=== PATIENT | female | born 1965 | race Caucasian/White ===

== ENCOUNTER → 2016-10-28 | Outpatient (CLI) | payer BC ==
[~2016-10-28] MED LIST: ACET-1175 PO; FAMO1TAB71 PO; IBUPROFEN
--- NOTE | 2016-10-29 16:37 | MAMMOGRAPHY REPORT ---
BILATERAL DIGITAL SCREENING MAMMOGRAM TOMOSYNTHESIS WITH CAD: 10/28/2016 CLINICAL HISTORY: Routine screening. Patient has no complaints. TECHNIQUE: Breast tomosynthesis in addition to standard 2D mammography was performed. Current study was also evaluated with a Computer Aided Detection (CAD) system. COMPARISON: Comparison is made to exams dated: 10/25/2015 mammogram, 11/14/2011 mammogram, 11/12/2010 mammogram, 11/10/2009 mammogram - [facility], 11/09/2008, and 05/27/2007. BREAST COMPOSITION: The tissue of both breasts is heterogeneously dense, which may obscure small ma sses. FINDINGS: A 15 mm lobulated and circumscribed mass in the 6:00 posterior right breast is stable mamm ographically dating back to at least 2006, therefore likely benign. No new suspicious mass, archite ctural distortion or cluster of microcalcifications is seen. IMPRESSION: ACR BI-RADS CATEGORY 1: NEGATIVE There is no mammographic evidence of malignancy. A 1 year screening mammogram is recommended. The p atient will receive written notification of the results. Approximately 10% of breast cancers are not detected with mammography. A negative mammographic repor t should not delay biopsy if a clinically suggestive mass is present. Davida Nolasco M.D. ay/:10/29/2016 15:35:13 Airplane Pilot Crop Dusting: Dipti Garsia, [facility] letter sent: Normal 1/2 BI-RADS Code: ACR BI-RADS Category 1: Negative
== END | disposition home or self-care (01) ==
LOC: C.MAMM 08:41
PROVIDERS: ATTEND Obstetrics & Gynecology
DX: Z12.31 Encounter for screening mammogram for malignant neoplasm of breast (principal)

== ENCOUNTER → 2017-11-11 | Outpatient (CLI) | payer OTHER ==
[~2017-11-11] MED LIST changes: +FAMO-103 PO; -FAMO1TAB71 PO
--- NOTE | 2017-11-12 15:22 | MAMMOGRAPHY REPORT ---
BILATERAL DIGITAL SCREENING MAMMOGRAM TOMOSYNTHESIS WITH CAD: 11/11/2017 CLINICAL HISTORY: Routine screening. Patient has no complaints. TECHNIQUE: Breast tomosynthesis in addition to standard 2D mammography was performed. Current study was also evaluated with a Computer Aided Detection (CAD) system. COMPARISON: Comparison is made to exams dated: 10/28/2016 mammogram, 10/25/2015 mammogram, 11/14/2011 m ammogram, 11/12/2010 mammogram, 11/10/2009 mammogram - [facility], and 11/09/2008. BREAST COMPOSITION: The tissue of both breasts is heterogeneously dense, which may obscure small mas ses. FINDINGS: A circumscribed mass in the 6:00 posterior right breast is fluctuating in size comparing to prior mammograms, most likely representing a fluctuating cysts. This has been present dating back t o at least 2008 on the currently available priors. No new suspicious mass, architectural distortion or cluster of microcalcifications is seen. IMPRESSION: ACR BI-RADS CATEGORY 1: NEGATIVE There is no mammographic evidence of malignancy. A 1 year screening mammogram is recommended. The pa tient will receive written notification of the results. Approximately 10% of breast cancers are not detected with mammography. A negative mammographic report should not delay biopsy if a clinically suggestive mass is present. Davida Nolasco M.D. ay/:11/11/2017 17:25:57 Pest Control Service Representative: Paula EASON)(Nesha), [facility] letter sent: Normal 1/2 BI-RADS Code: ACR BI-RADS Category 1: Negative
== END | disposition home or self-care (01) ==
LOC: C.MAMM 07:39
PROVIDERS: ATTEND Obstetrics & Gynecology
DX: Z12.31 Encounter for screening mammogram for malignant neoplasm of breast (principal)

== ENCOUNTER → 2018-04-30 | Outpatient (CLI) | payer OTHER ==
[2018-04-30 11:48] LABS: CKMB < 1.0 ng/ml (0.5-3.6)
[2018-05-03 00:34] LABS: ANA SCREEN TC 249X NEGATIVE (NEGATIVE)
== END | disposition home or self-care (01) ==
LOC: C.LAB1850 10:32
PROVIDERS: ATTEND Physician Assistant
DX: M79.7 Fibromyalgia (principal)

== ENCOUNTER 2019-02-13 13:22 | Inpatient (IN) ==
--- OUTSIDE RECORDS SUMMARY | 2019-02-13 13:25 | External Medical Summary | Continuity of Care Document ---
:1965 Author Name Michelle Shelby, Provider Address Unavailable Unavailable , Care Team Providers Name Role Phone Vladimir DUMONT, Americo Unavailable [email or web address] NICOLÁS Shelby, CARYL Ramirez Unavailable Unavailable Unavailable Unavailable Unavailable Problems Preventive Medicine Estab Patient Checkup Adult 40-64 (V70.0 ) Vomiting (787.03) (R11.10) Urinary tract infection (599.0) (N39.0) Acute conjunctivitis (372.00) (H10.30) Encounter for routine gynecological exam ination with Papanicolaou smear of cervix (V72.31) (Z01.419) Contact dermatitis due to poison yana (692.6) (L23.7) Insomnia (780.52) (G47.00) Rash (782.1) (R21) Cough (786.2) (R05) Nausea (787.02) (R11.0) Encounter for routine pelvic examination (V72.31) (Z01.419) Tinea cruris (110.3) (B35.6) Chronic pain (338.29) (G89.29) Fibromyalgia (729.1) (M79.7) GERD without esophagitis (530.81) (K21.9) Hypertension (401.9) (I10) Arthralgia of multiple sites (719.49) (M25.50) Abnormal TSH (790.6) (R79.89) Allergies and Adverse Reactions Penicillins (Allergy) Reaction: Hives Terramycin SUSP (Allergy) Medications Pantoprazole Sodium 40 MG Oral Tablet De layed Release; TAKE ONE TABLET BY MOUTH DAILY JULIA Gilbert Start: 30-Sep-2012 Quantity: 30 Refills: 5 Ciprofloxacin HCl - 500 MG Oral Tablet; BID X 10DAY Veronica Gilbert Quantity: 20 Refills: 0 Pepcid 20 MG Oral Tablet Refills: 0 ALPRAZolam 0.25 MG Oral Tablet; TAKE 1 TABLET AT BEDTI PR NEEDED. JULIA Gilbert Start: 11-Oct-2013 Quantity: 30 Refills: 1 Calcium + D 500-1000-40 MG-UNT-MCG Oral Tablet Chewable; one daily Start: 11-Oct-2014 Refills: 0 Magnesium 500 MG Oral Tablet; Take 1 daily Start: 11-Oct-2014 Refills: 0 Escitalopram Oxalate 5 MG Oral Tablet; Take 1.5 table t daily JULIA Gilbert Start: 07-May-2018 Quantity: 45 Refills: 5 Glucosamine Chondr 1500 Complx Oral Capsule Start: 30-Apr-2018 Refills: 0 Probiotic Oral Capsule Start: 7 Refills: 0 Meloxicam 7.5 MG Oral Tablet; TAKE ONE TABLET BY MOUTH ONCE DAILY JULIA Gilbert Start: 14-May-2016 Quantity: 30 Refills: 5 Losartan Potassium 50 MG Oral Tablet; TAKE ONE TABLET BY MOUTH TWICE DAILY JULIA Gilbert Start: 12-Oct-2015 Quantity: 180 Refills: 3 Procedures Lipid Profile - Fasting Date: 02-Feb-2019 Free T4 Date: 04-Jan-2019 Ultra TSH Date: 04-Jan-2019 Free T4 Date: 02-Feb-2019 Ultra TSH Date: 02-Feb-2019 History of Dilation And Curettage Status : Completed History of Hysteroscopy With Status: Com pleted 01-Apr-2008 0:00 Endometrial Ablation History of Total Abdominal Status: Compl eted 27-Feb-2010 0:00 Hysterectomy With Removal Of Left Ovary History of Biopsy Breast Open Status: [facility] Preventive Medicine Estab Patient Checkup Adult 40-64 Immunizations Influenza On: 2011 Pneumococcal polysaccharide vaccine, 23 valent On: 29-Oct-19 13 13:59 Lot #: [id number], [employer] Tdap (Adacel) On: 29-Oct-2012 14:00 Lot #: [id number], [employer] Family History Unknown Family Member Family history of Hypertension (V17.49) Status: Active Comments: Family History Family history of Thyroid Disorder (V18.19) Status: Active Comments: Family History Family history of Urinary Tract Infection Status: Active Comments: Family History Family history of Diabetes Mellitus (V18.0) Status: Active Comments: Family History Social History - Smoking Status Never smoker Plan of Treatment Planned Encounters Appointment; Americo Gilbert PA-C Start: 13-May-2019 8:30 Req uest Planned Observations Planned Goals not documented Results No Known Results Results not documented Encounters Appointment; Americo Gilbert PA-C 12-Nov-2018 14:15 Encounter Diagnosis: Problem not documented Appointment; Americo Gilbert PA-C 30-Apr-2018 9:00 Encounter Diagnosis: Problem not documented Appointment; Americo Gilbert PA-C 22-Oct-2017 9:15 Encounter Diagnosis: Problem not documented Appointment; Americo Gilbert PA-C 09-Apr-2017 9:30 Encounter Diagnosis: Problem not documented Appointment; Americo Gilbert PA-C 13-May-2019 8:30 Encounter Diagnosis: Problem not documented
[2019-02-13] MEDS ORDERED: MoRPHine SULFATE 4 MG/ML 1 ML CARP\\VIAL IV STA (13:47)
[2019-02-13] MEDS ORDERED: ONDANSETRON INJ 2 MG/ML 2 ML VIAL IV STA (13:47)
[2019-02-13] MEDS ORDERED: SODIUM CHLORIDE 0.9% 1000ML 1,000 ML IV SCH (14:00)
[2019-02-13 14:09] LABS: Appearance Urine Turbid (Clear); Bacteria Urine Automated 4+ (Negative); Bilirubin Urine Negative (Negative); Color Urine Amber; Epithelial Cell Urine Auto >30 /lpf (0-5); Glucose Urine UA Negative (Negative); Ketones Urine 1+ (Negative); Leukocyte Esterase Urine 3+ (Negative); Nitrite Urine Positive (Negative); Protein Urine 2+ (Negative); Specific Gravity Urine 1.022 (1.000-1.030); Urobilinogen Urine Negative (Negative); WBC Urine Automated >30 /hpf (0-5)
[2019-02-13 14:21] LABS: Basophils # (auto) 0.05 K/uL (0-0.2); Basophils % (auto) 0.4 %; Eosinophils # (auto) 0.02 K/uL (0-0.5); Eosinophils % (auto) 0.1 %; Hematocrit (blood only) 32.3 % (37-47); Hemoglobin 11.6 g/dL (12.0-16.0); Immature Granulocytes # (auto) 0.04 K/uL (0.00-0.02); Immature Granulocytes % (auto) 0.3 %; Lymphocytes # (auto) 0.52 K/uL (1.2-3.4); Lymphocytes % (auto) 3.7 %; Mean Corpuscular Hgb Conc 35.9 g/dL (32-36); Mean Corpuscular Volume 85.4 fL (80-100); Mean Platelet Volume 9.3 fL (7.4-10.4); Monocytes # (auto) 1.36 K/uL (0.11-0.59); Monocytes % (auto) 9.6 %; Neutrophils # (auto) 12.23 K/uL (1.4-6.5); Neutrophils % (auto) 85.9 %; Platelet Count 204 K/uL (130-400); RDW Coefficient of Variation 12.9 % (11.5-14.5); RDW Standard Deviation 40.8 fL (36.4-46.3); Red Blood Count 3.78 M/uL (4.2-5.4); White Blood Count 14.22 K/uL (4.8-10.8)
[2019-02-13] MEDS ORDERED: cefTRIAXone SODIUM 1,000 MG/50 ML BAG IV STA (14:31)
[2019-02-13 14:39] LABS: Albumin Level 3.1 gm/dl (3.4-5.0); BUN Creatinine Ratio 13.4 (10-20); Calcium 8.8 mg/dl (8.5-10.1); Creatinine Clr Calc Pharmacy 49.8 ml/min; Est GFR (African American) 55.7; Potassium 3.6 mmol/L (3.5-5.1)
[2019-02-13 14:41] LABS: Albumin Globulin Ratio 0.8 (0.9-2); Bilirubin,Total 1.2 mg/dl (0.2-1); Globulin 3.7 gm/dl (2.5-4.0); Total Protein 6.8 gm/dl (6.4-8.2)
--- NOTE | 2019-02-13 14:56 | CT Scan Report ---
CT OF THE ABDOMEN AND PELVIS WITHOUT CONTRAST CLINICAL HISTORY: Left flank pain. COMPARISON STUDY: CT of the abdomen and pelvis December 16, 2009. Right upper quadrant ultrasound Augus t 2011. TECHNIQUE: Axial images of the abdomen and pelvis were obtained without IV contrast. Images were revi ewed in the axial, sagittal, and coronal planes. Automated exposure control was utilized for the derek dy. A dose lowering technique was utilized adhering to the principles of ALARA. FINDINGS: Lung bases are clear. No pneumatosis, free air or portal venous gas is present. Multiple wa ter attenuation hepatic lesions are suboptimally assessed on this unenhanced exam but favor cysts. Th e largest is a 5.4 cm lateral segment cyst. Unenhanced images of the spleen, adrenal glands and pancr eas are unremarkable. There is no biliary or pancreatic ductal dilatation. No evidence for a bowel obstruction. The appendix is not well visualized. There is no right lower emily drant inflammation. No renal, ureteral or bladder calculi are present. There is no hydronephrosis. Th ere is moderate left and mild right perinephric infiltration. There is also periureteral infiltration , greater than left. Bladder wall thickening with adjacent infiltration is noted although the bladder is underdistended. No suspicious osseous lesions are present. There is no lymphadenopathy. Small fat -containing umbilical hernia is present. IMPRESSION: 1. No urinary calculi or hydronephrosis. 2. Moderate left and mild right perinephric and periureteral infiltration with bladder wall thickenin g adjacent infiltration. The findings suggest an infectious process with cystitis and possible bilate ral pyelonephritis. No renal abscess. 3. Multiple suspected hepatic cysts. Electronically signed by: Don Jeffery M.D. 02/13/2019 2:55 PM
--- NOTE | 2019-02-13 16:17 | History & Physical Report ---
Date of Service February 13, 2019 Assessment & Plan (1) Acute pyelonephritis: Patient failed outpatient therapy with ciprofloxacin CT abdomen pelvis without contrast along with urinalysis confirmed pyelonephritis Patient with fever and rigors We will start patient on ceftriaxone Obtain urine culture Obtain blood cultures Admit to [facility] (2) Acute kidney injury: Most likely secondary to acute illness -no history of kidney injury or renal failure in the past Will start the patient on normal saline with 20 mEq of potassium chloride at 125 mL/h Follow I's and O's Repeat labs in the morning No hematuria (3) HTN (hypertension): Currently hemodynamically stable Continue home dose of losartan 50 mg twice daily Vital signs per protocol (4) Fibromyalgia: Continue Tylenol as needed Morphine sulfate for pain control for pyelonephritis Follow expectantly (5) GERD without esophagitis: No prior history of peptic ulcer disease No prior history of GI bleed Continue with pantoprazole every morning and famotidine every afternoon No history of ethanol use No history of tobacco use (6) Hyperlipidemia: No prior history Outpatient work-up (7) Hepatic cyst: Incidental finding on CT -no prior history per patient Minimal transaminitis -repeat labs in the morning Check coags No pain in right upper quadrant (8) Hyperglycemia: No prior history of diabetes mellitus Check a hemoglobin A1c (9) DVT prophylaxis: FELI reese SCDs Ambulate as tolerated No chemical prophylaxis at this time Please refer to Dr. Driscoll's addendum for further recommendations. History of Present Illness Attending: Dr. Hansen Is a 53-year-old female who began to have some nausea and fever 2 days ago. She was prescribed ciprofloxacin by her primary care provider and started oral antibiotics 36 hours ago. Overnight she developed a worsening nausea and left flank and CVA tenderness. She also developed fever with a T-max of 104 Fahrenheit accompanied by rigors. She presented emergency department was found to have a temp of 38.2 C. UA is positive. Urine culture is pending. CT scan of the abdomen pelvis without contrast revealed no urinary calculi or hydronephrosis. There was mention of moderate left and mild right perinephric and periureteral infiltration with bladder wall thickening adjacent to infiltration. The findings suggest infectious process with cystitis and possible bilateral pyelonephritis. There is no evidence of renal abscess. Incidentally there was also mention of multiple suspected hepatic cysts with the largest being 5.4 cm. There is no evidence of biliary or pancreatic ductal dilatation. Unenhanced images of the spleen, adrenal glands, and pancreas are unremarkable. Patient will be admitted for observation and IV antibiotics using ceftriaxone. The patient has a history of hypertension, fibromyalgia, GERD without esophagitis, insomnia, recurrent urinary tract infection, abnormal TSH. Home medications include losartan, pantoprazole, Pepcid, calcium plus D, E citalopram, meloxicam, glucosamine, and magnesium. Past surgical history includes breast biopsy, abdominal hysterectomy with unilateral salpingo-oophorectomy, EGD, esophageal dilatation. No tobacco or ethanol use history Primary Care Provider: Jhony Boyle MD Allergies Allergy/AdvReac Type Severity Reaction Status Date / Time latex Allergy Unknown Verified 02/13/19 14:59 Penicillins Allergy Unknown Verified 02/13/19 14:59 Tetracyclines Allergy Unknown ALLERGY TO Verified 02/13/19 14:59 OXYTETRACYCLINE (TERRAMYCIN) Home Medications Home Medications Medication Instructions Recorded Confirmed Type calcium carbonate [Calcium 500] 500 mg PO BID 02/13/19 02/13/19 History cholecalciferol (vitamin D3) 5,000 unit PO DAILY 02/13/19 02/13/19 History [Vitamin D3] escitalopram oxalate 5 mg PO DAILY 02/13/19 02/13/19 History famotidine [Pepcid] 20 mg PO QPM 02/13/19 02/13/19 History glucosamine sulfate [Glucosamine] 500 mg PO BID 02/13/19 02/13/19 History losartan 50 mg PO BID 02/13/19 02/13/19 History meloxicam 7.5 mg PO DAILY 02/13/19 02/13/19 History pantoprazole 40 mg PO DAILY 02/13/19 02/13/19 History Past Med/Surg History Medical History Hyperlipidemia Acute kidney injury Insomnia Abnormal TSH Fibromyalgia GERD without esophagitis Acute pyelonephritis (Acute) Hepatic cyst (Acute) HTN (hypertension) (Chronic) Surgical History H/O breast biopsy History of D&C S/P abdominal hysterectomy and left salpingo-oophorectomy Family History Other Diabetes Hypertension Thyroid gland disease Urinary tract infection Social History Preferred Language: Japanese Communication Ability: Effective Custom Clothier Required: No Beliefs That Will Affect Care: Zoroastrian Zoroastrian Beliefs: Dylan Shelton marital status: Current Living Situation: Spouse and Family current occupational status: employed Other Information That Helps Us Care for You: No Feels Safe at Home: Yes Safety Concerns: Feels Safe At This Time Smoking Status: Never smoker Do You Dip or Chew Tobacco: No Hx Alcohol Use: No Hx Substance Use: No Review of Systems Review of Systems: All systems reviewed & are unremarkable except as noted in HPI & below Physical Exam Physical Exam: GENERAL : No acute distress. Pleasant EYES: No icterus, gaze conjugate. PERRL NOSE: No evidence of epistaxis. MOUTH: No lesions or candidiasis. No evidence of dental caries. Tongue midline. Mucosa moist. NECK: Supple. Right carotid bruit. No JVD LUNGS: CTA B/L, no wheezes, rales or rhonchi. HEART: Regular, rate controlled. No appreciation murmurs gallops or rubs ABDOMEN: Soft, ND, BS Present in all 4 quadrants. Patient does have tenderness in the left upper quadrant. Also with CVA tenderness on the left EXTREMITIES: No LE edema, pedal pulses intact. NEURO: A&OX3. Bicep, brachioradialis, patellar tendon reflexes 2/4 bilaterally. No appreciation of neurological deficits Constitutional: WD/WN, vitals as above Eyes: normal visual lund by confrontation and + anicteric sclerae Neck: normal visual inspection and trachea midline Respiratory: normal respiratory effort, lungs clear to auscultation Cardiovascular: Rate/Rhythm: regular rate and regular rhythm Gastrointestinal (Abdomen): Inspection/Auscultation: + abdomen distended Percussion/Palpation: + abdomen tender (diffuse) and abdomen soft L CVA TTP Musculoskeletal: Head/Neck/Chest: normocephalic and head atraumatic Neg for peripheral LE edema, + pedal pulses Skin: no rashes, warm and dry Neurologic: awake; not confused Speech / Cognition: normal speech Psychiatric: A+Ox3, euthymic affect Lymphatic: Exam as done by Davina Hansen DO Results & Data Vital Signs (Past 12 Hours) Vital Signs Temp Pulse Pulse Resp BP BP Pulse Ox 02/13/19 14:41 96 H 98 H 22 112/62 98 02/13/19 13:25 38.2 C H 120 H 20 141/78 H 95 Laboratory Results 02/13/19 13:54 02/13/19 13:54 Abnormal Labs 02/13/19 02/13/19 02/13/19 13:45 13:54 13:54 WBC 14.22 H RBC 3.78 L Hgb 11.6 L Hct 32.3 L Immature Gran # (Auto) 0.04 H Neut # (Auto) 12.23 H Lymph # (Auto) 0.52 L Rusk # (Auto) 1.36 H Sodium 135 L Creatinine 1.28 H Glucose 167 H Total Bilirubin 1.2 H AST 45 H Albumin 3.1 L Albumin/Globulin Ratio 0.8 L Lipase 55 L Urine Appearance Turbid A Urine Protein 2+ H Urine Ketones 1+ H Urine Blood 3+ H Urine Nitrite Positive A Ur Leukocyte Esterase 3+ H Urine WBC (Auto) >30 H Urine RBC (Auto) 10-30 H U Epithel Cells (Auto) >30 H Urine Bacteria (Auto) 4+ H Diagnostic Findings CT OF THE ABDOMEN AND PELVIS WITHOUT CONTRAST CLINICAL HISTORY: Left flank pain. COMPARISON STUDY: CT of the abdomen and pelvis December 16, 2009. Right upper quadrant ultrasound May 11, 2012. TECHNIQUE: Axial images of the abdomen and pelvis were obtained without IV contrast. Images were reviewed in the axial, sagittal, and coronal planes. Automated exposure control was utilized for the study. A dose lowering technique was utilized adhering to the principles of ALARA. FINDINGS: Lung bases are clear. No pneumatosis, free air or portal venous gas is present. Multiple water attenuation hepatic lesions are suboptimally assessed on this unenhanced exam but favor cysts. The largest is a 5.4 cm lateral segment cyst. Unenhanced images of the spleen, adrenal glands and pancreas are unremarkable. There is no biliary or pancreatic ductal dilatation. No evidence for a bowel obstruction. The appendix is not well visualized. There is no right lower quadrant inflammation. No renal, ureteral or bladder calculi are present. There is no hydronephrosis. There is moderate left and mild right perinephric infiltration. There is also periureteral infiltration, greater than left. Bladder wall thickening with adjacent infiltration is noted although the bladder is underdistended. No suspicious osseous lesions are present. There is no lymphadenopathy. Small fat-containing umbilical hernia is present. IMPRESSION: 1. No urinary calculi or hydronephrosis. 2. Moderate left and mild right perinephric and periureteral infiltration with bladder wall thickening adjacent infiltration. The findings suggest an infectious process with cystitis and possible bilateral pyelonephritis. No renal abscess. 3. Multiple suspected hepatic cysts. Electronically signed by: Don Jeffery M.D. 02/13/2019 2:55 PM Code Status & VTE Plan Code Status Full code: Level I VTE Prophylaxis Plan VTE Prophylaxis will be ordered: Yes Critical Care Time Critical Care Time: No Prolonged Care Time Prolonged Care Time: No Supervising Physician Co-Signing Physician Notes Pt seen and examined by me. Denies chest pain or SOB. Has not tolerated PO since yesterday. Tried to eat a bit since admission but no appetite. Does feel a bit better s/p IVF and abx. Still with L flank pain that radiates to her L abd. No hx of pyelo before this. Hx of UTI. Agree with HPI/ROS as noted by PA See above for my exam in PE section Agree with plan as outlined above Pyelo, failed outpt abx Ceftriaxone Cx pending Pt requested demerol, concerned given possible renal damage with this medication and cr is mildly elevated on admission. Discussed with her and will hold for now
[2019-02-13] MEDS ORDERED: ACETAMINOPHEN 325 MG TAB ONE (16:21)
[2019-02-13] MEDS ORDERED: POLYETHYLENE (MIRALAX) 17 GM PACK PO PRN (16:38)
[2019-02-13] MEDS ORDERED: ONDANSETRON INJ 2 MG/ML 2 ML VIAL IV PRN (16:38)
--- NOTE | 2019-02-13 17:06 | Emergency Department Note ---
Entered by Danelle Jerome acting as a scribe for Everett Munson MD History of Present Illness General Chief complaint: Flank Pain Stated complaint: Fever, Flank Pain, UTI, Chills Source: patient History of Present Illness Provider complaint: left flank pain Onset (ago): day(s) 2 Location: back, abdomen and left Maximum Pain Intensity: 6 Quality: + aching and + sharp Associated symptoms: + fever/chills and + nausea/vomiting The patient is a 53 year old female who presents to the Emergency Department with complaints of left flank pain beginning 2 days ago. The patient rates her discomfort at a 6/10. She describes the pain as an ache while she is sitting but sharp with movement. She states that 3 days ago she developed pressure in her bladder and thought that she had a UTI. She also reports that she developed chills and had a fever. She states that she called her PCP who prescribed her Cipro. She states that she had 3 doses. The patient states that later in the day she was febrile at 104.9. and states that she took Tylenol and Ibuprofen. The patient states that she vomited last evening. She reports a history of hypert ension but denies a history of kidney stones. Home Medications Home Medications Medication Instructions Recorded Confirmed Type calcium carbonate [Calcium 500] 500 mg PO BID 02/13/19 02/13/19 History cholecalciferol (vitamin D3) 5,000 unit PO DAILY 02/13/19 02/13/19 History [Vitamin D3] escitalopram oxalate 5 mg PO DAILY 02/13/19 02/13/19 History famotidine [Pepcid] 20 mg PO QPM 02/13/19 02/13/19 History glucosamine sulfate [Glucosamine] 500 mg PO BID 02/13/19 02/13/19 History losartan 50 mg PO BID 02/13/19 02/13/19 History meloxicam 7.5 mg PO DAILY 02/13/19 02/13/19 History pantoprazole 40 mg PO DAILY 02/13/19 02/13/19 History Allergies Allergy/AdvReac Type Severity Reaction Status Date / Time latex Allergy Unknown Verified 02/13/19 14:59 Penicillins Allergy Unknown Verified 02/13/19 14:59 Tetracyclines Allergy Unknown ALLERGY TO Verified 02/13/19 14:59 OXYTETRACYCLINE (TERRAMYCIN) Past Med/Surg History Medical History Hyperlipidemia Acute kidney injury Insomnia Abnormal TSH Fibromyalgia GERD without esophagitis Acute pyelonephritis (Acute) Hepatic cyst (Acute) HTN (hypertension) (Chronic) Surgical History H/O breast biopsy History of D&C S/P abdominal hysterectomy and left salpingo-oophorectomy Family History Other Diabetes Hypertension Thyroid gland disease Urinary tract infection Social History Preferred Language: Indonesian Communication Ability: Effective 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 and A total of 10 systems reviewed and were otherwise negative Physical Exam Vital Signs Vital Signs - 24 hr 02/13/19 13:25 02/13/19 14:41 02/13/19 16:00 Temperature 38.2 C H Temperature Source Oral Sepsis Recent Fever Within 48 Hours Yes Sepsis New/Unexplained Change in Mental Status No Pulse Rate 120 H 96 H Pulse Rate [Apical] 98 H 110 H Pulse Rhythm Regular Pulse Rhythm [Apical] Regular Regular Pulse Strength [Apical] Normal Respiratory Rate 20 22 18 Respiratory Effort / Characteristics Non-Labored Non-Labored Respiratory Depth Normal Normal Blood Pressure 141/78 H Blood Pressure [Left Arm] 112/62 122/51 L Blood Pressure Mean 99 Blood Pressure Mean [Left Arm] 78 74 Blood Pressure Position Sitting Pulse Oximetry 95 98 96 Oxygen Delivery Method Room Air Room Air Room Air Constitutional: Vital signs reviewed. Eyes: Pupils are equal round reactive to light. Conjunctiva are noninjected. ENT: Pharynx is clear without erythema or exudate. Mucous membranes are moist. Neck supple without meningeal signs. Respiratory: Clear to auscultation bilaterally. Breath sounds are equal bilaterally. Cardiovascular: Tachycardic. No rubs or gallops. GI: Soft, nondistended. Left-sided abdominal tenderness. No guarding. Bowel sounds are present. Musculoskeletal: No peripheral edema. No lower extremity tenderness. No CVA tenderness. Integumentary: No cyanosis. Neurological: The patient is awake and alert. No focal deficits. Psychiatric: Normal affect. Course 1341: The patient was evaluated in room B10. A history and physical were performed. 1516: I updated the patient. She is feeling better. I recommended hospitalization. She verbalized agreement and understanding of the treatment plan. 1521: I discussed the patient's case with Victor Hugo Holland who will evaluate the patient for further management. Consultations Consultation #1: Victor Hugo Holland Time: 15:21 Administered Medications Discontinued Medications Acetaminophen (Tylenol) Confirm Administered Dose 650 mg .ROUTE .STK-MED ONE Stop: 02/13/19 16:22 Last Admin: 02/13/19 16:23 Dose: 650 mg Documented by: [id number] Sodium Chloride (Nss 1000ml) 1,000 mls @ 999 mls/hr IV .Q1H1M LAURIE Stop: 02/13/19 15:00 Last Infusion: 02/13/19 15:12 Dose: 0 mls/hr Documented by: [id number] Admin: 02/13/19 14:12 Dose: 999 mls/hr Documented by: [id number] Ceftriaxone Sodium (Rocephin) 1,000 mg in 50 mls @ 100 mls/hr IV NOW STA Stop: 02/13/19 15:00 Last Infusion: 02/13/19 15:22 Dose: 0 mls/hr Documented by: [id number] Admin: 02/13/19 14:52 Dose: 100 mls/hr Documented by: [id number] Morphine Sulfate (Morphine Sulfate) 4 mg IV NOW STA Stop: 02/13/19 13:48 Last Admin: 02/13/19 14:12 Dose: 4 mg Documented by: [id number] Ondansetron HCl (Zofran) 4 mg IV NOW STA Stop: 02/13/19 13:48 Last Admin: 02/13/19 14:12 Dose: 4 mg Documented by: [id number] Medical Decision Making Differential Diagnosis Differentials include pyelonephritis, UTI, outpatient treatment failure, kidney stone, and hydronephrosis. Medical Records Attestation: I reviewed the patient's medical records. I did perform a limited focused review of portions of the patient's old chart on the electronic medical record. The patient has had no recent pertinent visits to this hospital. Home Medications Current Medication List: was personally reviewed by me Laboratory Data Attestation: I reviewed the patient's lab results. Result diagrams: 02/13/19 13:54 02/13/19 13:54 Lab Results 02/13/19 02/13/19 02/13/19 Range/Units 13:45 13:54 13:54 WBC 14.22 H (4.8-10.8) K/uL RBC 3.78 L (4.2-5.4) M/uL Hgb 11.6 L (12.0-16.0) g/dL Hct 32.3 L (37-47) % MCV 85.4 (80-100) fL MCH 30.7 (25-34) pg MCHC 35.9 (32-36) g/dL RDW Std Deviation 40.8 (36.4-46.3) fL RDW Coeff of Steffi 12.9 (11.5-14.5) % Plt Count 204 (130-400) K/uL MPV 9.3 (7.4-10.4) fL Immature Gran % (Auto) 0.3 % Neut % (Auto) 85.9 % Lymph % (Auto) 3.7 % Kenton % (Auto) 9.6 % Eos % (Auto) 0.1 % Baso % (Auto) 0.4 % Immature Gran # (Auto) 0.04 H (0.00-0.02) K/uL Neut # (Auto) 12.23 H (1.4-6.5) K/uL Lymph # (Auto) 0.52 L (1.2-3.4) K/uL Kenton # (Auto) 1.36 H (0.11-0.59) K/uL Eos # (Auto) 0.02 (0-0.5) K/uL Baso # (Auto) 0.05 (0-0.2) K/uL Sodium 135 L (136-145) mmol/L Potassium 3.6 (3.5-5.1) mmol/L Chloride 104 (98-107) mmol/L Carbon Dioxide 24 (21-32) mmol/L Anion Gap 8.0 (3-11) BUN 17 (7-18) mg/dl Creatinine 1.28 H (0.6-1.2) mg/dl Est Cr Clr Drug Dosing 49.8 ml/min Est GFR ( Amer) 55.7 Est GFR (Non-Af Amer) 48.0 BUN/Creatinine Ratio 13.4 (10-20) Glucose 167 H (70-99) mg/dl Calcium 8.8 (8.5-10.1) mg/dl Total Bilirubin 1.2 H (0.2-1) mg/dl AST 45 H (15-37) U/L ALT 57 (12-78) U/L Alkaline Phosphatase 103 (45-117) U/L Total Protein 6.8 (6.4-8.2) gm/dl Albumin 3.1 L (3.4-5.0) gm/dl Globulin 3.7 (2.5-4.0) gm/dl Albumin/Globulin Ratio 0.8 L (0.9-2) Lipase 55 L (73-393) U/L Urine Color Alix Urine Appearance Turbid A (Clear) Urine pH 5.0 (4.5-7.5) Ur Specific Tate 1.022 (1.000-1.030) Urine Protein 2+ H (Negative) Urine Glucose (UA) Negative (Negative) Urine Ketones 1+ H (Negative) Urine Blood 3+ H (Negative) Urine Nitrite Positive A (Negative) Urine Bilirubin Negative (Negative) Urine Urobilinogen Negative (Negative) Ur Leukocyte Esterase 3+ H (Negative) Urine WBC (Auto) >30 H (0-5) /hpf Urine RBC (Auto) 10-30 H (0-4) /hpf U Hyaline Cast (Auto) 1-5 (0-5) /lpf U Epithel Cells (Auto) >30 H (0-5) /lpf Urine Bacteria (Auto) 4+ H (Negative) Urine Yeast Not Reportable Imaging Data Radiologist's Impression: Radiology results as stated below per my review and the radiologist's interpretation: CT OF THE ABDOMEN AND PELVIS WITHOUT CONTRAST CLINICAL HISTORY: Left flank pain. COMPARISON STUDY: CT of the abdomen and pelvis December 16, 2009. Right upper quadrant ultrasound May 11, 2012. TECHNIQUE: Axial images of the abdomen and pelvis were obtained without IV contrast. Images were reviewed in the axial, sagittal, and coronal planes. Automated exposure control was utilized for the study. A dose lowering technique was utilized adhering to the principles of ALARA. FINDINGS: Lung bases are clear. No pneumatosis, free air or portal venous gas is present. Multiple water attenuation hepatic lesions are suboptimally assessed on this unenhanced exam but favor cysts. The largest is a 5.4 cm lateral segment cyst. Unenhanced images of the spleen, adrenal glands and pancreas are unremarkable. There is no biliary or pancreatic ductal dilatation. No evidence for a bowel obstruction. The appendix is not well visualized. There is no right lower quadrant inflammation. No renal, ureteral or bladder calculi are present. There is no hydronephrosis. There is moderate left and mild right perinephric infiltration. There is also periureteral infiltration, greater than left. Bladder wall thickening with adjacent infiltration is noted although the bladder is underdistended. No suspicious osseous lesions are present. There is no lymphadenopathy. Small fat-containing umbilical hernia is present. IMPRESSION: 1. No urinary calculi or hydronephrosis. 2. Moderate left and mild right perinephric and periureteral infiltration with bladder wall thickening adjacent infiltration. The findings suggest an infectious process with cystitis and possible bilateral pyelonephritis. No renal abscess. 3. Multiple suspected hepatic cysts. Electronically signed by: Don Jeffery M.D. 02/13/2019 2:55 PM Blood Pressure Blood Pressure Findings: Elevated blood pressure Blood Pressure Disposition: Referred to patients primary care provider ULISES Narrative I did evaluate the patient as noted above. The patient is presenting with flank pain and urinary symptoms with high fevers and vomiting. IV access was established. The patient was placed on a continuous panel monitor. I did treat the patient with IV morphine and Zofran. She was also given normal saline IV. I did order a urine analysis. She appears to have pyelonephritis. I did order ceftriaxone IV for the patient. I did order and review the patient's blood work as noted in the electronic medical record. Her white count is elevated. I did order a CT of the abdomen and pelvis. I did review the images myself as well as the radiology report as described above. She does not have any signs of stone or hydronephrosis. She does have some hepatic cysts as well as signs of pyelonephritis. I did discuss the test results with the patient. She is feeling better but still tachycardic. I did recommend hospitalization given her outpatient treatment failure, her persistent vomiting and hypertension with high fevers. I did discuss the case with the hospitalist and case picker. Impression & Plan Acute pyelonephritis, Hepatic cyst, Failure of outpatient treatment Discharge Plan Visit Data Chief Complaint: Flank Pain Stated Complaint: Fever, Flank Pain, UTI, Chills ED Provider: Everett Munson Discharge Problem: Acute pyelonephritis, Hepatic cyst, Failure of outpatient treatment Patient Disposition: Being Evaluated by Hospitalist The ryane's documentation has been prepared under my direction and personally reviewed by me in its entirety. I confirm that the note above accurately reflects all work, treatment, procedures, and medical decision making performed by me.
[2019-02-13 17:15] LABS: INR 1.1 (0.9-1.1); Partial Thromboplastin Time 26.8 Seconds (21.0-31.0); Prothrombin Time 10.9 Seconds (9.0-12.0)
[2019-02-13] MEDS ORDERED: MoRPHine SULFATE 2 MG/ML CARP IV PRN (17:17)
[2019-02-13] MEDS: NSS + 20MEQ KCL 20 MEQ/1,000 ML BAG IV SCH (17:53)
[2019-02-13] MEDS: LOSARTAN POTASSIUM 50 MG TAB PO SCH (20:20)
[2019-02-13] MEDS: FAMOTIDINE 20 MG TAB PO SCH (20:20)
[2019-02-13] MEDS: CALCIUM CARBONATE 1250MG TAB PO SCH (20:20)
[2019-02-13] MEDS: ACETAMINOPHEN 325 MG TAB PO PRN (20:29)
[2019-02-14] MEDS: NSS + 20MEQ KCL 20 MEQ/1,000 ML BAG IV SCH ×4 (00:14→23:57)
[2019-02-14] MEDS: ACETAMINOPHEN 325 MG TAB PO PRN ×4 (02:46→23:56)
[2019-02-14 06:34] LABS: Basophils # (auto) 0.05 K/uL (0-0.2); Basophils % (auto) 0.4 %; Eosinophils # (auto) 0.03 K/uL (0-0.5); Eosinophils % (auto) 0.2 %; Hematocrit (blood only) 30.2 % (37-47); Hemoglobin 10.2 g/dL (12.0-16.0); Immature Granulocytes # (auto) 0.04 K/uL (0.00-0.02); Immature Granulocytes % (auto) 0.3 %; Lymphocytes # (auto) 1.01 K/uL (1.2-3.4); Lymphocytes % (auto) 7.2 %; Mean Corpuscular Hgb Conc 33.8 g/dL (32-36); Mean Corpuscular Volume 88.3 fL (80-100); Mean Platelet Volume 9.6 fL (7.4-10.4); Monocytes # (auto) 1.62 K/uL (0.11-0.59); Monocytes % (auto) 11.6 %; Neutrophils # (auto) 11.21 K/uL (1.4-6.5); Neutrophils % (auto) 80.3 %; Platelet Count 214 K/uL (130-400); RDW Coefficient of Variation 13.1 % (11.5-14.5); RDW Standard Deviation 42.5 fL (36.4-46.3); Red Blood Count 3.42 M/uL (4.2-5.4); White Blood Count 13.96 K/uL (4.8-10.8)
[2019-02-14 07:22] LABS: Albumin Level 2.4 gm/dl (3.4-5.0); Bilirubin Direct 0.4 mg/dl (0-0.2); Calcium 8.1 mg/dl (8.5-10.1); Creatinine Clr Calc Pharmacy 49.1 ml/min; Est GFR (African American) 54.6; Est GFR (Non-African American) 47.1; Potassium 4.5 mmol/L (3.5-5.1)
[2019-02-14 07:29] LABS: Bilirubin,Total 0.9 mg/dl (0.2-1); Total Protein 5.7 gm/dl (6.4-8.2)
[2019-02-14] MEDS: PANTOprazole 40 MG TAB PO SCH (08:30)
[2019-02-14] MEDS: CHOLECALCIFEROL 1,000 UNITS TAB PO SCH (08:30)
[2019-02-14] MEDS: ESCITALOPRAM OXALATE 10 MG TAB PO SCH (08:31)
[2019-02-14] MEDS: CALCIUM CARBONATE 1250MG TAB PO SCH ×2 (08:32→20:43)
[2019-02-14] MEDS: LOSARTAN POTASSIUM 50 MG TAB PO SCH ×2 (08:33→20:42)
[2019-02-14] MEDS: MELOXICAM 7.5 MG TAB PO SCH (08:34)
[2019-02-14] MEDS ORDERED: OXYCODONE/ACETAMINOPHEN 5mg/325mg TAB ONE (14:09)
[2019-02-14] MEDS ORDERED: cefTRIAXone SODIUM 1,000 MG in DEXTROSE 5% 50 ML IV SCH (15:00)
--- NOTE | 2019-02-14 16:29 | Hospitalist Progress Note ---
Date of Service February 14, 2019 Assessment & Plan (1) Acute pyelonephritis: Failed outpt tx with cipro, improving on ceftriaxone Urine cx pending Noted on CTAP WBC improved (2) Acute kidney injury: Stable Holding nephrotoxic meds Continue IVF (3) HTN (hypertension): Low normal off of home meds (4) Fibromyalgia: continue home meds (5) GERD without esophagitis: continue home meds (6) Hyperlipidemia: Holding home meds (7) Hepatic cyst: Noted on CTAP LFTs stable (8) Hyperglycemia: No hx of DM A1c pending (9) DVT prophylaxis: Ambulation Subjective Pt feels a bit improved, but still with fevers, rigors, and flank pain. Abd pain is better but still present at times. No further n/v and did tolerate a diet. Pt denies SOB, chest pain, c/d, LE pain or swelling. Review of Systems Review of Systems: Pertinent positives and negatives reviewed in HPI--all others negative Physical Exam Constitutional: WD/WN, vitals as above Eyes: normal visual lund by confrontation and + anicteric sclerae Neck: normal visual inspection and trachea midline Respiratory: normal respiratory effort, lungs clear to auscultation Cardiovascular: Rate/Rhythm: regular rate and regular rhythm Gastrointestinal (Abdomen): Inspection/Auscultation: + abdomen distended (improved) Percussion/Palpation: + abdomen tender (minimal) and abdomen soft Musculoskeletal: Head/Neck/Chest: normocephalic and head atraumatic Skin: no rashes, warm and dry Neurologic: awake; not confused Speech / Cognition: normal speech Psychiatric: A+Ox3, euthymic affect Results & Data Vital Signs (Past 12 Hours) Vital Signs Temp Pulse Resp BP BP Pulse Ox 02/14/19 16:07 37.3 C 96 H 18 112/65 99 02/14/19 07:42 37.2 C 97 H 17 99/65 L 96 02/14/19 05:06 36.9 C
[2019-02-14] MEDS ORDERED: COUGH DROP (SUGAR FREE) LOZ 24 LOZ/1 BOX BUCCAL ONE (20:37)
[2019-02-14] MEDS: FAMOTIDINE 20 MG TAB PO SCH (20:43)
[2019-02-14] MEDS: OXYCODONE/ACETAMINOPHEN 5mg/325mg TAB PO PRN (23:56)
[2019-02-15 05:51] LABS: Estimated Average Glucose 105 mg/dl
[2019-02-15 07:16] LABS: Basophils # (auto) 0.05 K/uL (0-0.2); Basophils % (auto) 0.4 %; Eosinophils # (auto) 0.26 K/uL (0-0.5); Eosinophils % (auto) 1.9 %; Hematocrit (blood only) 33.5 % (37-47); Hemoglobin 11.5 g/dL (12.0-16.0); Immature Granulocytes # (auto) 0.04 K/uL (0.00-0.02); Immature Granulocytes % (auto) 0.3 %; Lymphocytes # (auto) 2.24 K/uL (1.2-3.4); Lymphocytes % (auto) 16.6 %; Mean Corpuscular Hgb Conc 34.3 g/dL (32-36); Mean Corpuscular Volume 87.9 fL (80-100); Mean Platelet Volume 9.4 fL (7.4-10.4); Monocytes % (auto) 8.9 %; Neutrophils # (auto) 9.69 K/uL (1.4-6.5); Neutrophils % (auto) 71.9 %; Platelet Count 267 K/uL (130-400); RDW Coefficient of Variation 13.4 % (11.5-14.5); RDW Standard Deviation 43.2 fL (36.4-46.3); Red Blood Count 3.81 M/uL (4.2-5.4); White Blood Count 13.48 K/uL (4.8-10.8)
[2019-02-15 07:48] LABS: BUN Creatinine Ratio 9.8 (10-20); Calcium 8.5 mg/dl (8.5-10.1); Creatinine Clr Calc Pharmacy 56.9 ml/min; Est GFR (African American) 65.4; Est GFR (Non-African American) 56.4; Potassium 4.2 mmol/L (3.5-5.1)
[2019-02-15] MEDS: ACETAMINOPHEN 325 MG TAB PO PRN (07:48)
[2019-02-15] MEDS: NSS + 20MEQ KCL 20 MEQ/1,000 ML BAG IV SCH ×2 (07:49→16:42)
[2019-02-15] MEDS: CALCIUM CARBONATE 1250MG TAB PO SCH ×2 (07:49→20:39)
[2019-02-15] MEDS: PANTOprazole 40 MG TAB PO SCH (07:49)
[2019-02-15] MEDS: ESCITALOPRAM OXALATE 10 MG TAB PO SCH (07:50)
[2019-02-15] MEDS: LOSARTAN POTASSIUM 50 MG TAB PO SCH ×2 (07:51→20:40)
[2019-02-15] MEDS: CHOLECALCIFEROL 1,000 UNITS TAB PO SCH (07:51)
[2019-02-15] MEDS: MELOXICAM 7.5 MG TAB PO SCH (07:52)
[2019-02-15] MEDS: HYDROCODONE/HOMATROPINE SYRUP 5MG/1.5MG 5ML UDP PO PRN ×3 (08:05→20:39)
--- NOTE | 2019-02-15 08:13 | XRay Report ---
XR chest 1V portable CLINICAL HISTORY: SOB, Cough, ESBL UTI dyspnea COMPARISON STUDY: No previous studies for comparison. FINDINGS: Heart is top normal in terms of size. Mild prominence of the peribronchial and basilar lung markings bilaterally. This may be consistent with bronchitis. IMPRESSION: Bronchitis versus pulmonary vascular congestion. The above report was generated using voice recognition software. It may contain grammatical, syntax or spelling errors. Electronically signed by: Lonine Myrick M.D. 02/15/2019 8:11 AM
--- NOTE | 2019-02-15 09:51 | Hospitalist Progress Note ---
Date of Service February 15, 2019 Assessment & Plan (1) Acute pyelonephritis: Patient failed outpatient therapy with ciprofloxacin Urine cultures now show E. coli-ESBL Patient has been on ceftriaxone since Friday so today's day #3 but ceftriaxone has no sensitivity Change patient to ertapenem Persistent fevers -T-max 39.2 this morning -check repeat blood cultures Check renal ultrasound to rule out developing abscess with persistent fevers Blood cultures with no growth from admission Continue IV fluids with normal saline with 20 mEq of potassium chloride per liter at 125 mL/h Continue to follow serial labs (2) Acute kidney injury: BUN 11; creatinine 1.12 Check renal ultrasound Continue normal saline with 20 mEq of potassium chloride at 125 mL/h Follow I's and O's Follow serial labs (3) Transaminitis: Hepatic cysts appear to be benign compared to previous CT from 8 years ago Coag studies are within normal limits We will follow LFTs every other day as patient has been started on ertapenem Get repeat LFTs this morning compared to admission numbers (4) Bronchitis: Chest x-ray this morning confirms bronchitis No hypoxia -oxygen well on room air in the mid 90s Patient with increased cough with no sputum production or hemoptysis Patient has been on ceftriaxone since admission Today will be day 3 of antibiotics and will change to ertapenem Hycodan syrup for cough No indication for sputum culture as patient is day 3 of antibiotics Incentive spirometry as tolerated Ambulate as tolerated (5) HTN (hypertension): Currently hemodynamically stable Continue home dose of losartan 50 mg twice daily Vital signs per protocol (6) Fibromyalgia: Continue Tylenol as needed Morphine sulfate for pain control for pyelonephritis Follow expectantly (7) GERD without esophagitis: No prior history of peptic ulcer disease No prior history of GI bleed Continue with pantoprazole every morning and famotidine every afternoon No history of ethanol use No history of tobacco use (8) Hyperlipidemia: No prior history Outpatient work-up (9) Hepatic cyst: Incidental finding on CT -following a benign pattern based on previous CT abdomen pelvis Review of CT scan from 8 years ago shows smaller cysts No pain in right upper quadrant (10) Hyperglycemia: Improved No prior history of diabetes mellitus Hemoglobin A1c 5.3 Continue heart healthy diet (11) DVT prophylaxis: FELI leigh SCDs Ambulate as tolerated No chemical prophylaxis at this time Please refer to Dr. Ulrich's addendum for further recommendations. Supervising Physician Co-Signing Physician Notes Attending Attestation: Pt seen/examined, chart reviewed, care plan d/w MARAL Vicente. I agree w/ the phillips components of his documentation. Pt felt poorly this am during her fever. She felt better as the day went on. Mild flank pain b/l. h/o bronchitis requiring use of inhalers and son has asthma. Cough is worst symptom today. No recent urological procedure or recurrent UTIs. BPs wnl, febrile gen - nontoxic, NAD, coughing mouth - MMM neck - no JVD heart - RRR, s1, s2 lungs - poor expiratory phase sounds, minimal faint end-exp wheeze, fine rales bases abd - soft, minimal tenderness b/l flanks, BS+ ext - no edema A/P: 1. sepsis 2nd to ESBL e coli UTI with b/l pyelonephritis 2. refractory fever due to ESBL e. coli 3. acute bronchitis 4. acute kidney injury agree w/ change to ertapenem; traditionally pyelonephritis would be Rx with 10- 14 days of abx therapy. review of sensitivities - no available PO option. 14-days of IV ertapenem? add xopenex/atrovent nebs q6h for bronchitis. incentive. cough syrup. fluids BMP andi ULRICH MD Subjective Attending: Dr. Ulrich Is a 53-year-old female that was admitted on Friday for pyelonephri tis. She has a history of recurrent UTI. She failed outpatient therapy with ciprofloxacin. She has continued to have persistent fever with a T-max of 39.2 C this morning. Her rigors seem to have improved since admission but she has now developed an intractable cough. She has some shortness of breath and chest tightness with cough but otherwise no chest pain. She continues to be tachycardic. She has no lightheadedness or dizziness. She has no chest pain radiating into the back neck shoulders or arms. Patient's appetite has been decreased but she has no nausea or vomiting. She denies any diarrhea. Patient has no other acute complaints. Review of Systems Review of Systems: All systems reviewed & are unremarkable except as noted in HPI & below Constitutional: + fever and + chills Cardiovascular: + problem reported (Tachycardia); no chest pain, no radiating jaw, neck or arm pain, no lightheadedness, no syncope and no calf pain Physical Exam Physical Exam: GENERAL : No acute distress. Appears ill. Persistent cough EYES: No icterus, gaze conjugate. Pupils are equal and round NOSE: No evidence of epistaxis MOUTH: No lesions or candidiasis. Tongue is midline NECK: Supple. LUNGS: CTA B/L, no wheezes, rales or rhonchi. HEART: Regular, tachycardic. No appreciation of murmurs gallops or rubs ABDOMEN: Soft, NT, ND, BS Present. EXTREMITIES: No LE edema, pedal pulses intact NEURO: A&OX3 Results & Data Vital Signs (Past 12 Hours) Vital Signs Temp Pulse Resp BP Pulse Ox 02/15/19 08:04 39.4 C H 126 H 20 138/74 94 02/15/19 03:44 36.7 C 02/15/19 01:06 36.8 C 02/14/19 23:51 36.5 C 105 H 20 116/72 95 Laboratory Results 02/15/19 06:58 02/15/19 06:58 Abnormal Labs 02/13/19 02/13/19 02/13/19 13:45 13:54 13:54 WBC 14.22 H RBC 3.78 L Hgb 11.6 L Hct 32.3 L Immature Gran # (Auto) 0.04 H Neut # (Auto) 12.23 H Lymph # (Auto) 0.52 L [place] # (Auto) 1.36 H Sodium 135 L Chloride Creatinine 1.28 H BUN/Creatinine Ratio Glucose 167 H Calcium Total Bilirubin 1.2 H Direct Bilirubin AST 45 H ALT Alkaline Phosphatase Total Protein Albumin 3.1 L Albumin/Globulin Ratio 0.8 L Lipase 55 L Urine Appearance Turbid A Urine Protein 2+ H Urine Ketones 1+ H Urine Blood 3+ H Urine Nitrite Positive A Ur Leukocyte Esterase 3+ H Urine WBC (Auto) >30 H Urine RBC (Auto) 10-30 H U Epithel Cells (Auto) >30 H Urine Bacteria (Auto) 4+ H 02/14/19 02/14/19 02/15/19 06:03 06:03 06:58 WBC 13.96 H 13.48 H RBC 3.42 L 3.81 L Hgb 10.2 L 11.5 L Hct 30.2 L 33.5 L Immature Gran # (Auto) 0.04 H 0.04 H Neut # (Auto) 11.21 H 9.69 H Lymph # (Auto) 1.01 L [place] # (Auto) 1.62 H 1.20 H Sodium Chloride 111 H Creatinine 1.30 H BUN/Creatinine Ratio Glucose 109 H Calcium 8.1 L Total Bilirubin Direct Bilirubin 0.4 H AST 50 H ALT 80 H Alkaline Phosphatase 129 H Total Protein 5.7 L Albumin 2.4 L Albumin/Globulin Ratio Lipase Urine Appearance Urine Protein Urine Ketones Urine Blood Urine Nitrite Ur Leukocyte Esterase Urine WBC (Auto) Urine RBC (Auto) U Epithel Cells (Auto) Urine Bacteria (Auto) 02/15/19 06:58 WBC RBC Hgb Hct Immature Gran # (Auto) Neut # (Auto) Lymph # (Auto) [place] # (Auto) Sodium Chloride 113 H Creatinine BUN/Creatinine Ratio 9.8 L Glucose Calcium Total Bilirubin Direct Bilirubin AST ALT Alkaline Phosphatase Total Protein Albumin Albumin/Globulin Ratio Lipase Urine Appearance Urine Protein Urine Ketones Urine Blood Urine Nitrite Ur Leukocyte Esterase Urine WBC (Auto) Urine RBC (Auto) U Epithel Cells (Auto) Urine Bacteria (Auto) Diagnostic Findings XR chest 1V portable CLINICAL HISTORY: SOB, Cough, ESBL UTI dyspnea COMPARISON STUDY: No previous studies for comparison. FINDINGS: Heart is top normal in terms of size. Mild prominence of the peribronchial and basilar lung markings bilaterally. This may be consistent with bronchitis. IMPRESSION: Bronchitis versus pulmonary vascular congestion. Electronically signed by: Lonnie Myrick M.D. 02/15/2019 8:[address] OF THE ABDOMEN AND PELVIS WITHOUT CONTRAST CLINICAL HISTORY: Left flank pain. COMPARISON STUDY: CT of the abdomen and pelvis December 16, 2009. Right upper quadrant ultrasound May 11, 2012. TECHNIQUE: Axial images of the abdomen and pelvis were obtained without IV contrast. Images were reviewed in the axial, sagittal, and coronal planes. Automated exposure control was utilized for the study. A dose lowering technique was utilized adhering to the principles of ALARA. FINDINGS: Lung bases are clear. No pneumatosis, free air or portal venous gas is present. Multiple water attenuation hepatic lesions are suboptimally assessed on this unenhanced exam but favor cysts. The largest is a 5.4 cm lateral segment cyst. Unenhanced images of the spleen, adrenal glands and pancreas are unremarkable. There is no biliary or pancreatic ductal dilatation. No evidence for a bowel obstruction. The appendix is not well visualized. There is no right lower quadrant inflammation. No renal, ureteral or bladder calculi are present. There is no hydronephrosis. There is moderate left and mild right perinephric infiltration. There is also periureteral infiltration, greater than left. Bladder wall thickening with adjacent infiltration is noted although the bladder is underdistended. No suspicious osseous lesions are present. There is no lymphadenopathy. Small fat-containing umbilical hernia is present. IMPRESSION: 1. No urinary calculi or hydronephrosis. 2. Moderate left and mild right perinephric and periureteral infiltration with bladder wall thickening adjacent infiltration. The findings suggest an infectious process with cystitis and possible bilateral pyelonephritis. No renal abscess. 3. Multiple suspected hepatic cysts. Electronically signed by: Don Jeffery M.D. 02/13/2019 2:55 PM
--- NOTE | 2019-02-15 10:26 | Ultrasound Report ---
US renal/blad retro comp HISTORY: Fever. Infection. Persistent fever, Comp UTI, r/o abcess COMPARISON: CT 02/13/2019 FINDINGS: Right kidney: Maximum dimension 11.7 cm Normal corticomedullary differentiation and cortical thicknes s. Left kidney: Maximum dimension 12.8 cm. Normal corticomedullary differentiation and cortical thickne ss. Bladder: No bladder wall thickening. The bilateral ureteral jets were identified. IMPRESSION: Normal renal ultrasound. No evidence for abscess, collection, or hydronephrosis. The above report was generated using voice recognition software. It may contain grammatical, syntax or spelling errors. Electronically signed by: Lonnie Myrick M.D. 02/15/2019 10:24 AM
[2019-02-15 10:28] LABS: Albumin Level 2.4 gm/dl (3.4-5.0); Bilirubin Direct 0.2 mg/dl (0-0.2); Bilirubin,Total 0.5 mg/dl (0.2-1); Total Protein 6.2 gm/dl (6.4-8.2)
[2019-02-15] MEDS: ERTAPENEM SODIUM 1,000 MG in SODIUM CHLORIDE 0.9% 50 ML IV SCH (10:45)
[2019-02-15] MEDS: LACTOBACILLUS ACIDOPHILUS (FLORANEX) TAB PO SCH ×2 (13:19→16:44)
[2019-02-15] MEDS: OXYCODONE/ACETAMINOPHEN 5mg/325mg TAB PO PRN (16:43)
[2019-02-15] MEDS ORDERED: LEVALBUTEROL TARTRATE 15 GM HFA.AER.AD INH PRN (19:33)
[2019-02-15] MEDS ORDERED: XOPENEX/ATROVENT 1.25mg/0.5MG NEB COMBO NEB SCH (20:00)
[2019-02-15] MEDS: IPRATROPIUM BROMIDE NEB SOLN 0.02% 2.5 ML VIAL INH SCH (20:14)
[2019-02-15] MEDS: LEVALBUTEROL 1.25MG/0.5ML NEB INH SCH (20:14)
[2019-02-15] MEDS: FAMOTIDINE 20 MG TAB PO SCH (20:40)
[2019-02-16] MEDS: NSS + 20MEQ KCL 20 MEQ/1,000 ML BAG IV SCH ×2 (00:26→08:31)
[2019-02-16] MEDS: BENZONATATE 100 MG CAPSULE PO PRN ×2 (01:26→16:09)
[2019-02-16] MEDS: IPRATROPIUM BROMIDE NEB SOLN 0.02% 2.5 ML VIAL INH SCH ×4 (01:35→20:06)
[2019-02-16] MEDS: LEVALBUTEROL 1.25MG/0.5ML NEB INH SCH ×4 (01:35→20:06)
[2019-02-16] MEDS: HYDROCODONE/HOMATROPINE SYRUP 5MG/1.5MG 5ML UDP PO PRN ×3 (02:20→23:01)
[2019-02-16 07:09] LABS: Basophils # (auto) 0.05 K/uL (0-0.2); Basophils % (auto) 0.6 %; Eosinophils # (auto) 0.25 K/uL (0-0.5); Eosinophils % (auto) 2.8 %; Hematocrit (blood only) 27.5 % (37-47); Hemoglobin 9.4 g/dL (12.0-16.0); Immature Granulocytes # (auto) 0.05 K/uL (0.00-0.02); Immature Granulocytes % (auto) 0.6 %; Lymphocytes # (auto) 1.57 K/uL (1.2-3.4); Lymphocytes % (auto) 17.3 %; Mean Corpuscular Hgb Conc 34.2 g/dL (32-36); Mean Corpuscular Volume 87.3 fL (80-100); Monocytes # (auto) 0.97 K/uL (0.11-0.59); Monocytes % (auto) 10.7 %; Neutrophils # (auto) 6.19 K/uL (1.4-6.5); Platelet Count 234 K/uL (130-400); RDW Coefficient of Variation 13.2 % (11.5-14.5); RDW Standard Deviation 42.8 fL (36.4-46.3); Red Blood Count 3.15 M/uL (4.2-5.4); White Blood Count 9.08 K/uL (4.8-10.8)
[2019-02-16 07:42] LABS: BUN Creatinine Ratio 6.4 (10-20); Calcium 8.7 mg/dl (8.5-10.1); Creatinine Clr Calc Pharmacy 68.6 ml/min; Est GFR (African American) 81.9; Est GFR (Non-African American) 70.7; Potassium 4.1 mmol/L (3.5-5.1)
[2019-02-16] MEDS: ERTAPENEM SODIUM 1,000 MG in SODIUM CHLORIDE 0.9% 50 ML IV SCH (08:24)
[2019-02-16] MEDS: CALCIUM CARBONATE 1250MG TAB PO SCH ×2 (08:25→21:42)
[2019-02-16] MEDS: LACTOBACILLUS ACIDOPHILUS (FLORANEX) TAB PO SCH ×3 (08:25→16:08)
[2019-02-16] MEDS: LOSARTAN POTASSIUM 50 MG TAB PO SCH ×2 (08:27→21:41)
[2019-02-16] MEDS: CHOLECALCIFEROL 1,000 UNITS TAB PO SCH (08:29)
[2019-02-16] MEDS: MELOXICAM 7.5 MG TAB PO SCH (08:29)
[2019-02-16] MEDS: PANTOprazole 40 MG TAB PO SCH (08:29)
[2019-02-16] MEDS: ESCITALOPRAM OXALATE 10 MG TAB PO SCH (08:32)
[2019-02-16] MEDS: ACETAMINOPHEN 325 MG TAB PO PRN (12:46)
--- NOTE | 2019-02-16 17:38 | XRay Report ---
XR chest 2V routine CLINICAL HISTORY: 53 years-old Female presenting with bronchitis. TECHNIQUE: PA and lateral views of the chest were obtained. COMPARISON: 02/15/2019. FINDINGS: Cardiomediastinal silhouette normal. Trace bilateral pleural effusions. Mildly low lung volumes. No f ocal opacity apart from minimal bibasilar opacities. No pneumothorax. Osseous structures normal. Chol ecystectomy clips noted. IMPRESSION: 1. Bibasilar atelectasis and trace bilateral pleural effusions. No focal infiltrate to suggest pneum onia. Electronically signed by: Ike Zambrano M.D. 02/16/2019 5:37 PM
[2019-02-16] MEDS ORDERED: predniSONE 20 MG TAB PO STA (17:42)
[2019-02-16] MEDS: OXYCODONE/ACETAMINOPHEN 5mg/325mg TAB PO PRN (18:52)
[2019-02-16] MEDS: FAMOTIDINE 20 MG TAB PO SCH (21:41)
--- NOTE | 2019-02-16 22:14 | Hospitalist Progress Note ---
Date of Service February 16, 2019 Assessment & Plan (1) Acute pyelonephritis: IMPROVED. Failed outpt tx with cipro as her urine culture grew ESBL e.coli and is cipro resistant. Rocephin IV was changed to IV ertapenem yesterday. day #2 of 14 of ertapenem. Blood cx's all negative. spoke with Geno Manzano & Blaine - plan 14 days of once daily IV ertapenem. will need u/s-guided IV placement before d/c. dispo planning. (2) Acute kidney injury: resolved. stop fluids. BMP am for stability. (3) Transaminitis: resolved. LFTs once more in am. reactive to illness?? (4) Bronchitis: ongoing. this is her main complaint. add steroids. 60mg prednisone today, then 40mg tomorrow. cont nebs. cont hycodan. cxr today with no discrete pneumonia or volume overload. (5) HTN (hypertension): losartan resumed BPs acceptable (6) Fibromyalgia: continue home meds (7) GERD without esophagitis: continue home meds (8) Hyperlipidemia: Holding home meds due to recent abnormal LFTs (9) Hepatic cyst: Noted on CT abd/pelvis chronic appearing likely simple, benign cysts should have f/u for surveillance (10) Hyperglycemia: A1c 5.3% reactive hyperglycemia due to stress of illness (11) DVT prophylaxis: Ambulation low risk hopefully d/c home tomorrow Subjective patient's flank pain is resolved. eating better. no urinary symptoms. no fevers/chills. main complaint is that of cough. no sputum. mild wheeze. no dyspnea or COLMENARES. mild subcostal pain from coughing. Review of Systems Constitutional: no fever, no chills, no body aches, no fatigue and no anorexia Respiratory: + cough; no dyspnea, no dyspnea on exertion, no hemoptysis and no sputum production Cardiovascular: as per Subjective / HPI; no orthopnea and no paroxysmal nocturnal dyspnea Gastrointestinal: no abdominal pain, no nausea and no vomiting Physical Exam Constitutional: well developed, well nourished and average body habitus; no acute distress, not ill appearing and no altered mental status ENMT: external ear and nose normal, oropharynx normal Respiratory: no labored breathing Auscultation: + rales (bibasilar); no rhonchi and no wheezes airation improved today Cardiovascular: Rate/Rhythm: regular rate and regular rhythm Heart Sounds: normal S1 and normal S2; no murmur Vessels: posterior tibial pulses present and dorsalis pedis pulses present; no JVD Gastrointestinal (Abdomen): normal bowel sounds, soft, nontender, no hepatosplenomegaly no flank pain Psychiatric: A+Ox3, euthymic affect Results & Data Vital Signs (Past 12 Hours) Vital Signs Temp Pulse Resp BP Pulse Ox 02/16/19 20:37 36.8 C 90 18 128/62 94 02/16/19 20:06 104 H 18 98 02/16/19 15:06 36.7 C 99 H 20 133/76 97 02/16/19 14:24 80 16 93 Laboratory Results Laboratory Results - last 24 hr 02/16/19 02/16/19 06:59 06:59 WBC 9.08 RBC 3.15 L Hgb 9.4 L Hct 27.5 L MCV 87.3 MCH 29.8 MCHC 34.2 RDW Std Deviation 42.8 RDW Coeff of Steffi 13.2 Plt Count 234 MPV 9.0 Immature Gran % (Auto) 0.6 Neut % (Auto) 68.0 Lymph % (Auto) 17.3 Bremer % (Auto) 10.7 Eos % (Auto) 2.8 Baso % (Auto) 0.6 Immature Gran # (Auto) 0.05 H Neut # (Auto) 6.19 Lymph # (Auto) 1.57 Bremer # (Auto) 0.97 H Eos # (Auto) 0.25 Baso # (Auto) 0.05 Sodium 143 Potassium 4.1 Chloride 113 H Carbon Dioxide 24 Anion Gap 7.0 BUN 6 L D Creatinine 0.93 Est Cr Clr Drug Dosing 68.6 Est GFR ( Amer) 81.9 Est GFR (Non-Af Amer) 70.7 BUN/Creatinine Ratio 6.4 L Glucose 95 Calcium 8.7 (1) Hyperlipidemia Hyperlipidemia type: mixed hyperlipidemia Qualified Code(s): E78.2 - Mixed hyperlipidemia (2) HTN (hypertension) Hypertension type: essential hypertension Qualified Code(s): I10 - Essential (primary) hypertension
[2019-02-17] MEDS: IPRATROPIUM BROMIDE NEB SOLN 0.02% 2.5 ML VIAL INH SCH ×3 (02:56→14:59)
[2019-02-17] MEDS: LEVALBUTEROL 1.25MG/0.5ML NEB INH SCH ×3 (02:56→14:59)
[2019-02-17 08:28] LABS: Hematocrit (blood only) 31.2 % (37-47); Hemoglobin 10.7 g/dL (12.0-16.0); Mean Corpuscular Hgb Conc 34.3 g/dL (32-36); Mean Corpuscular Volume 86.4 fL (80-100); Mean Platelet Volume 9.4 fL (7.4-10.4); Platelet Count 327 K/uL (130-400); RDW Coefficient of Variation 13.3 % (11.5-14.5); RDW Standard Deviation 42.5 fL (36.4-46.3); Red Blood Count 3.61 M/uL (4.2-5.4); White Blood Count 6.73 K/uL (4.8-10.8)
[2019-02-17 08:49] LABS: Albumin Level 2.8 gm/dl (3.4-5.0); BUN Creatinine Ratio 9.9 (10-20); Bilirubin,Total 0.4 mg/dl (0.2-1); Calcium 9.4 mg/dl (8.5-10.1); Creatinine Clr Calc Pharmacy 69.3 ml/min; Est GFR (Non-African American) 71.6; Total Protein 7.3 gm/dl (6.4-8.2)
[2019-02-17] MEDS: CHOLECALCIFEROL 1,000 UNITS TAB PO SCH (08:53)
[2019-02-17] MEDS: CALCIUM CARBONATE 1250MG TAB PO SCH (08:53)
[2019-02-17] MEDS: LOSARTAN POTASSIUM 50 MG TAB PO SCH (08:55)
[2019-02-17] MEDS: PANTOprazole 40 MG TAB PO SCH (08:55)
[2019-02-17] MEDS: LACTOBACILLUS ACIDOPHILUS (FLORANEX) TAB PO SCH ×2 (08:56→11:21)
[2019-02-17] MEDS: MELOXICAM 7.5 MG TAB PO SCH (08:57)
[2019-02-17] MEDS: ESCITALOPRAM OXALATE 10 MG TAB PO SCH (08:58)
[2019-02-17] MEDS: ERTAPENEM SODIUM 1,000 MG in SODIUM CHLORIDE 0.9% 50 ML IV SCH (08:58)
[2019-02-17 09:38] LABS: Potassium 3.6 mmol/L (3.5-5.1)
[2019-02-17] MEDS ORDERED: predniSONE 20 MG TAB PO STA (09:39)
[2019-02-17 09:42] LABS: Bilirubin Direct 0.1 mg/dl (0-0.2)
[2019-02-17] MEDS: OXYCODONE/ACETAMINOPHEN 5mg/325mg TAB PO PRN (11:20)
--- NOTE | 2019-02-22 21:39 | Discharge Summary ---
Date of Service date of admission - February 13, 2019 date of discharge - February 17, 2019 Admission HPI Per Admitting Provider 53-year-old female who began to have some nausea and fever 2 days ago. She was prescribed ciprofloxacin by her primary care provider for UTI. Overnight she developed a worsening nausea and left flank and CVA tenderness. She also developed fever with a T-max of 104 Fahrenheit accompanied by rigors. She presented emergency department was found to have a temp of 38.2 C. UA was suggestive of UTI. Urine culture is pending. CT scan of the abdomen pelvis without contrast revealed no urinary calculi or hydronephrosis. There was mention of moderate left and mild right perinephric and periureteral infiltration with bladder wall thickening adjacent to infiltration. The findings suggest infectious process with cystitis and possible bilateral pyelonephritis. There is no evidence of renal abscess. Incidentally there was also mention of multiple suspected hepatic cysts with the largest being 5.4 cm. There is no evidence of biliary or pancreatic ductal dilatation. Unenhanced images of the spleen, adrenal glands, and pancreas are unremarkable. Principal Diagnosis ESBL e.coli UTI and b/l pyelonephritis Discharge Exam Constitutional well developed, well nourished and average body habitus; no acute distress, not ill appearing and no altered mental status ENMT external ear and nose normal, oropharynx normal Respiratory no labored breathing Auscultation: + rales (scant b/l bases) and + wheezes (scant b/l (mainly with coughing)); no rhonchi Cardiovascular Rate/Rhythm: regular rate and regular rhythm Heart Sounds: normal S1 and normal S2; no murmur Vessels: posterior tibial pulses present and dorsalis pedis pulses present; no JVD Gastrointestinal (Abdomen) normal bowel sounds, soft, nontender, no hepatosplenomegaly no flank tenderness Psychiatric A+Ox3, euthymic affect Discharge Data Allergies Allergy/AdvReac Type Severity Reaction Status Date / Time latex Allergy Unknown Verified 02/13/19 14:59 Penicillins Allergy Unknown Verified 02/13/19 14:59 Tetracyclines Allergy Unknown ALLERGY TO Verified 02/13/19 14:59 OXYTETRACYCLINE (TERRAMYCIN) Ordered Studies 1. CT abd/pelvis - IMPRESSION: 1. No urinary calculi or hydronephrosis. 2. Moderate left and mild right perinephric and periureteral infiltration with bladder wall thickening adjacent infiltration. The findings suggest an infectious process with cystitis and possible bilateral pyelonephritis. No renal abscess. 3. Multiple suspected hepatic cysts. 2. Renal u/s - IMPRESSION: Normal renal ultrasound. No evidence for abscess, collection, or hydronephrosis. Hospital Course (1) Acute pyelonephritis: Patient failed outpatient treatment with cipro due to her urine culture ultimately growing ESBL e.coli. Initially she had received rocephin IV and this was promptly changed to IV ertapenem once her final urine culture resulted. She quickly defervesced with the IV ertapenem. Blood cultures remained negative while hospitalized. She received 3 days of IV ertapenem and will need 11 more days of such after discharge. An u/s-guided peripheral IV was placed for that purpose. Recommend repeat u/a and urine culture towards the end of her antibiotic course to ensure test of cure. (2) Acute kidney injury: Resolved with IV fluids. Peak Cr was 1.3, improving to 0.9 at discharge. (3) Transaminitis: Her AST and ALT were mildly elevated at the onset of her admission. These normalized prior to discharge. Exact etiology was uncertain but perhaps reactive to her illness? (4) Bronchitis: The patient developed acute bronchitis during the stay. She was placed on nebs, prednisone, and cough suppressants. Chest x-ray showed no discrete pneumonia or volume overload. She will complete a prednisone taper post-discharge. She was also given a spacer and xopenex inhaler. (5) HTN (hypertension): Continue losartan. BPs acceptable. (6) Fibromyalgia: continue home meds no issues while here (7) GERD without esophagitis: continue home meds (8) Hyperlipidemia: (9) Hepatic cyst: Noted on CT abd/pelvis. chronic appearing. likely simple, benign cysts. should have f/u for surveillance, however, to ensure continued benign nature of these. (10) Hyperglycemia: A1c 5.3%. Hyperglycemia was likely reactive due to stress of illness. Total Time Total Time Spent Total Time Spent (In Minutes): 40 Total Time Includes: Examination of the Patient, Discharge Planning, Medication Reconciliation and Communication With Other Providers Discharge Plan Discharge Items Patient Disposition: Home - Home Health Services Reason For Visit: ACUTE PYELONEPHRITIS Discharge Diagnosis: e.coli UTI with pyelonephritis (kidney infection). acute bronchitis. Discharge Goals: Diagnostic testing Activity: As commented below Activity Comment: take it easy over the next 3-4 days then gradually increase activities Non-emergency contact: Primary Care Provider Call non-emergency contact if: you have any medication questions, your symptoms worsen, your pain is not controlled, your pain is worsening, your pain is unusual for you and your temperature is above 100.5 Follow-up/Referrals: Americo Gilbert PA-C [Physician Sas Programmer Remote] - 02/24/19 11:30 am (Please, follow up with Bon Gilbert PA-C on FridayFebruary 24 at 11:30 am. *The office is located in [address] [facility]. If you need to change this appointment, call the office at [phone].) Diet: Heart Healthy Addtl Provider Instructions: From Sanjay Ulrich - You were treated for "ESBL" (resistant) e.coli UTI with bilateral pyelonephritis/kidney infection. You finally improved after ertapenem antibiotic was started. You received 3 days of this antibiotic and you will need 11 more days of it at home. Your blood cultures were negative during your stay; we did not find bloodstream infection. In the midst of the above you also developed bronchitis. Recommendations - 1. ertapenem 1gm IV daily for 11 days starting 02/18/19. 2. probiotic of your choosing daily along with extra yogurt to prevent diarrhea. 3. hydrocodone-homatropine cough syrup 5ml every 6 hours as needed for severe cough. 4. oxycodone-acetaminophen 1 tablet every 4 hours as needed for pain. 5. prednisone course - start TOMORROW on 02/18/19. 6. xopenex inhaler 2 puffs every 6 hours as needed for cough/wheeze. use the spacer device with it. 7. wwga-[id number]-gdgrjvv mucinex up to 1200mg each time every 12 hours as needed for cough/congestion. 8. please know the cough syrup and oxycodone can cause drowsiness. Do not drive or drink alcohol while taking these products. Do not take both products at the same time either. 9. if you take the pain medication please do not take extra uqcm-[id number]-lccolvz tylenol since the oxycodone has tylenol already in it. 10. you may need a stool softner if you take the oxycodone. 11. while on the prednisone HOLD the meloxicam. You can resume the meloxicam once the steroids are done. follow up - see separate section return to [facility] if -- * you have recurrent fevers over 100.5 degrees * you have severe diarrhea * you have severe cough,wheeze,shortness of breath despite the inhaler, cough syrup, prednisone, etc * you have severe back or abdominal pain * any other concerns Lastly, in about 7-10 days, please have a repeat urinalysis with culture to ensure the infection has resolved. Best wishes and feel better - Dr Ulrich Prescriptions: New levalbuterol tartrate [Xopenex HFA] 45 mcg/actuation Hfa Aerosol Inhaler 2 puff inhalation Q6H PRN (Reason: cough/wheeze/shortness of breath) Qty: 15 RF: 1 oxycodone-acetaminophen [Percocet] 5-325 mg Tablet 1 tab PO Q4H PRN (Reason: pain) Qty: 10 RF: 0 hydrocodone-homatropine [Hydromet] 5-1.5 mg/5 mL Syrup 5 ml PO Q6H PRN (Reason: cough) Qty: 100 RF: 0 prednisone 10 mg tablet 10 mg PO DIRECTED Qty: 16 RF: 0 ertapenem [Invanz] 1 gram recon soln 1 gm IV DAILY 11 Days Qty: 11 RF: 0 Continued losartan 50 mg tablet 50 mg PO BID RF: 0 glucosamine sulfate [Glucosamine] 500 mg Tablet 500 mg PO BID RF: 0 calcium carbonate [Calcium 500] 500 mg calcium (1,250 mg) Tablet 500 mg PO BID RF: 0 pantoprazole 40 mg tablet,delayed release (DR/EC) 40 mg PO DAILY RF: 0 escitalopram oxalate 5 mg tablet 5 mg PO DAILY RF: 0 cholecalciferol (vitamin D3) [Vitamin D3] 5,000 unit Tablet 5,000 unit PO DAILY RF: 0 famotidine [Pepcid] 20 mg Tablet 20 mg PO QPM RF: 0 Discontinued meloxicam 7.5 mg tablet 7.5 mg PO DAILY RF: 0 Stand-Alone Forms: [facility] Discharge Orders: Discharge Order (Routine); Ordered 02/17/19 Ordered By: Sanjay Ulrich Admission Data Admit Date/Time: 02/15/19 08:40 Attending Provider: Sanjay Ulrich Admit Provider: Davina Hansen Primary Care Provider: Jhony Boyle Service: Medical Other Interventions: Discharge Summary Assessment (RN) Last Done: 02/17/19 16:47 DC Date/Time DO NOT enter until pt leaves facility: 02/17/19 17:28
== END 2019-02-17 17:28 | disposition home health service (06) | DRG 690 ==
LOC: 2W 13:22 → ED 13:22 → SUATTDRO 16:02 → 2W 16:30
DX: Z91.040 Latex allergy status; Z88.0 Allergy status to penicillin; R73.9 Hyperglycemia, unspecified; R74.0 Nonspecific elevation of levels of transaminase and lactic acid dehydrogenase [LDH]; I10 Essential (primary) hypertension; K76.89 Other specified diseases of liver; Z16.23 Resistance to quinolones and fluoroquinolones; M79.7 Fibromyalgia; N10 Acute pyelonephritis; K21.9 Gastro-esophageal reflux disease without esophagitis; Z16.12 Extended spectrum beta lactamase (ESBL) resistance; Z88.1 Allergy status to other antibiotic agents; J40 Bronchitis, not specified as acute or chronic; B96.20 Unspecified Escherichia coli [E. coli] as the cause of diseases classified elsewhere; Z79.1 Long term (current) use of non-steroidal anti-inflammatories (NSAID); Z79.899 Other long term (current) drug therapy; N17.9 Acute kidney failure, unspecified

== ENCOUNTER 2019-11-16 01:58 | Inpatient (IN) ==
[2019-11-16] MEDS ORDERED: KETOROLAC TROMETHAMINE 15 MG/ML VIAL IV STA (02:21)
[2019-11-16] MEDS ORDERED: SODIUM CHLORIDE 0.9% 500 ML IV SCH (02:30)
[2019-11-16 02:55] LABS: Basophils # (auto) 0.04 K/uL (0-0.2); Basophils % (auto) 0.3 %; Eosinophils # (auto) 0.03 K/uL (0-0.5); Eosinophils % (auto) 0.2 %; Hematocrit (blood only) 36.1 % (37-47); Hemoglobin 12.1 g/dL (12.0-16.0); Immature Granulocytes # (auto) 0.02 K/uL (0.00-0.02); Immature Granulocytes % (auto) 0.2 %; Lymphocytes # (auto) 1.65 K/uL (1.2-3.4); Lymphocytes % (auto) 12.5 %; Mean Corpuscular Hemoglobin 29.5 pg (25-34); Mean Corpuscular Hgb Conc 33.5 g/dL (32-36); Mean Platelet Volume 9.1 fL (7.4-10.4); Monocytes # (auto) 0.75 K/uL (0.11-0.59); Monocytes % (auto) 5.7 %; Neutrophils # (auto) 10.74 K/uL (1.4-6.5); Neutrophils % (auto) 81.1 %; Platelet Count 313 K/uL (130-400); RDW Coefficient of Variation 13.5 % (11.5-14.5); RDW Standard Deviation 43.5 fL (36.4-46.3); White Blood Count 13.23 K/uL (4.8-10.8)
[2019-11-16 03:09] LABS: Appearance Urine Slightly Cloudy (Clear); Color Urine Orange; Specific Gravity Urine 1.015 (1.000-1.030); Sulfosalicylic Acid Urine Positive (Negative)
[2019-11-16 03:10] LABS: Albumin Level 3.6 gm/dl (3.4-5.0); BUN Creatinine Ratio 16.8 (10-20); Calcium 9.1 mg/dl (8.5-10.1); Creatinine Clr Calc Pharmacy 51.9 ml/min; Est GFR (African American) 56.7; Est GFR (Non-African American) 48.9; Potassium 3.1 mmol/L (3.5-5.1)
[2019-11-16 03:10] LABS: Protein Urine Positive (Negative)
[2019-11-16 03:13] LABS: Bilirubin,Total 0.8 mg/dl (0.2-1); Globulin 3.6 gm/dl (2.5-4.0); Total Protein 7.2 gm/dl (6.4-8.2)
[2019-11-16 03:13] LABS: Bacteria Urine 1+ (Negative); WBC Urine >30 /hpf (0-5)
[2019-11-16] MEDS ORDERED: ALBUT/IPRATROP 3MG/0.5MG NEB 3 ML VIAL NEB STA (03:13)
[2019-11-16] MEDS ORDERED: SODIUM CHLORIDE 0.9% 1000ML 1,000 ML IV SCH (03:30)
[2019-11-16] MEDS ORDERED: ERTAPENEM SODIUM 10 ML IV STA (03:59)
--- NOTE | 2019-11-16 04:52 | History & Physical Report ---
Date of Service November 16, 2019 Assessment & Plan (1) Complicated UTI (urinary tract infection): Anahi is a 53-year-old female with a past medical history of fibromyalgia, hypertension, hyperlipidemia, and complicated UTI with MDR E. coli who presents with 4-5 days of urinary symptoms and left flank pain with fever and lactate of 2.2 indicative of pyelonephritis with sepsis. Sepsis 2/2 pyelonephritis Febrile to 102.0 by home oral thermometer, 38.4 C in ED. Tachycardic to 114 with lactate 2.2 which normalized to 0.8 with aggressive fluid treatment. Leukocytosis to 13 Patient recently had a MDR UTI 01/2019 which required ertapenem treatment Her current symptoms did not improve with ciprofloxacin twice daily x3 days Started on empiric ertapenem UA, UC pending. UA may not be accurate due to Pyridium altering the colorimetric analysis Blood cultures pending Status post 1.5 L NSS bolus Continue NSS +20 KCl at 100 cc/h BMP, CBC daily No signs of urinary obstruction at this time, imaging deferred. Resolving bronchitis/URI Patient has had 1 month of improving URI symptoms with lingering cough, currently finishing a prednisone taper Chest x-ray does not show evidence of lobar pneumonia, formal read pending Low suspicion for pulmonary bacterial infection. Defer treatment of pulmonary pathogens, pro-Kwabena pending Complete taper with prednisone 10 mg x 2 days DuoNebs every 4 hours as needed MANISH versus prerenal azotemia Patient with prior creatinine baseline less than 1, acutely elevated to 1.26 on admission Received Toradol 15 mg in ED Hold further/home NSAIDs and ARB BMP daily, continue fluid repletion Hypokalemia Hypokalemic to 3.1 on admission Magnesium pending Potassium chloride 20 M EQ every 4 hours x3 doses IV FM with potassium as above Fibromyalgia Hold meloxicam in the setting of MANISH Hypertension Hold losartan in the setting of MANISH GERD Continue pantoprazole 40 mg daily Anxiety Continue GUNITE MIXER alprazolam 0.25 mg p.o. twice daily DVT prophylaxis: Lovenox 40 mg subcu Diet: Regular Disposition: Medical surgical CODE STATUS: Full code (2) Bronchitis: (3) Hyperglycemia: (4) Hyperlipidemia: (5) DVT prophylaxis: (6) Acute pyelonephritis: (7) HTN (hypertension): History of Present Illness Chief Complaint: Dysuria, flank pain, urinary urgency, fever Primary Care Provider: Americo Gilbert PA-C Anahi is a 53-year-old female with a past medical history of multidrug- resistant UTI, GERD, fibromyalgia, and hyperlipidemia who presents with approximately 1 week of dysuria and a fever to 102.0 prior to admission by home oral thermometer. Depth reports that her urinary symptoms began 5 days prior to admission. She was experiencing burning with urination, increased urinary frequency, small volume voids and on day of admission she had a 102.0 degree fever by oral thermometer along with left-sided flank/back pain. She took 3 days of ciprofloxacin p.o. twice daily which did not improve her symptoms. She had a prior complicated UTI on 02/13/2019 with multidrug-resistant E. coli which required treatment with ertapenem. She has nausea, has had one episode of nonbloody nonbilious emesis. She took Pyridium as well for pain, which may interfere with the colorimetric analysis of her UA. On admission she has a lactate of 2.2, leukocytosis to 13, and temperature of 38.4. She is tachycardic. Prior to this she has had a resolving URI with flulike symptoms which began 4 weeks ago and has been steadily improving but which have a lingering cough. She is completing a prednisone taper with 2 days left of 10 mg daily for bronchitis. She is not short of breath, and does not have chest pain/chest pressure. Rapid flu was negative. Medical history: Reviewed Surgical history: Reviewed in EMR Allergies: Reviewed. Allergic to latex and penicillins. Social: Lives at home with her , ambulates independently. No current or former tobacco history. No alcohol use. No recreational drug use. She works as a Guest Services Director nurse. CODE STATUS: Full code Allergies Allergy/AdvReac Type Severity Reaction Status Date / Time latex Allergy Unknown skin Verified 11/16/19 03:24 sensitivity level 1 Penicillins Allergy Unknown Redness of Verified 11/16/19 03:24 Skin Tetracyclines Allergy Unknown ALLERGY TO Verified 11/16/19 03:24 OXYTETRACYCLINE (TERRAMYCIN) Home Medications Home Medications Medication Instructions Recorded Confirmed Type calcium carbonate [Calcium 500] 1,000 mg PO BID 02/13/19 11/16/19 History cholecalciferol (vitamin D3) 5,000 unit PO DAILY 02/13/19 11/16/19 History [Vitamin D3] alprazolam 0.25 mg tablet 0.25 mg PO BID PRN #30 tab 11/11/19 11/16/19 Rx benzonatate 100 mg capsule 100 mg PO BID #30 cap 11/11/19 11/16/19 Rx escitalopram oxalate 5 mg tablet 10 mg PO DAILY #60 tab 11/11/19 11/16/19 Rx levalbuterol tartrate 45 2 puff INHALATION Q6H PRN #15 gm 11/11/19 11/16/19 Rx mcg/actuation aerosol inhaler losartan 50 mg tablet 50 mg PO BID #60 tab 11/11/19 11/16/19 Rx meloxicam 7.5 mg tablet 7.5 mg PO DAILY #30 tab 11/11/19 11/16/19 Rx pantoprazole 40 mg tablet,delayed 40 mg PO DAILY #30 tab 11/11/19 11/16/19 Rx release prednisone 10 mg tablet See Rx Instructions PO DAILY #20 11/11/19 11/16/19 Rx tab Past Med/Surg History Medical History Abnormal TSH Acute kidney injury Acute pyelonephritis (Acute) Fibromyalgia GERD without esophagitis Hepatic cyst (Acute) HTN (hypertension) (Chronic) Hyperlipidemia Insomnia Transaminitis Surgical History H/O breast biopsy History of D&C S/P abdominal hysterectomy and left salpingo-oophorectomy Social History Preferred Language: Azeri Communication Ability: Effective Monument Setter Required: No Beliefs That Will Affect Care: None marital status: Current Living Situation: Spouse and Family current occupational status: employed Feels Safe at Home: Yes Safety Concerns: Feels Safe At This Time Smoking Status: Never smoker Hx Alcohol Use: No Hx Substance Use: No Seatbelt Use: always Review of Systems Review of Systems: All systems reviewed & are unremarkable except as noted in HPI & below Physical Exam Physical Exam: General: A&Ox3. NAD. Cooperative. HEENT: Atraumatic, normocephalic. Mucous membranes tacky. Pulm: CTAB A&P. -wheezes, -rales, -rhonchi. Symmetrical chest rise. No increase work of breathing. No respiratory distress. Cardiac: Tachycardic, trace systolic murmur. Radial pulses intact and symmetrical. Abdominal: Mild left lower quadrant tenderness, no rebound, nonrigid, no guarding. Soft. Left-sided CVA tenderness. Neuro: Pupils are equal and react to light and accomidation. Visual acuity grossly intact. EoM intact without nystagmus. No facial asymmetry Hearing is grossly intact. Phonation is normal without dysarthria. Tongue protrudes midline. Sensory: Light touch, pinprick intact in upper and low extremities without deficit or asy mmetry. Strength: RUE: Shoulder flexion/extension/internal rotation/external rotation, elbow flexion/extension, finger flexion/extension, nut picker strength, interosseous 5/5 LUE: Shoulder flexion/extension/internal rotation/external rotation, elbow flexion/extension, finger flexion/extension, nut picker strength, interosseous 5/5 RLE: Hip flexion, knee flexion/extension, ankle plantar flexion/dorsiflexion 5/5 LLE: Hip flexion, knee flexion/extension, ankle plantar flexion/dorsiflexion 5/5 Results & Data Vital Signs (Past 12 Hours) Vital Signs Temp Pulse Pulse Resp BP BP Pulse Ox 11/16/19 04:00 114 H 18 125/61 95 11/16/19 03:31 107 H 16 97 11/16/19 02:01 38.4 C H 138 H 20 148/77 H 95 Supervising Physician Co-Signing Physician Notes Attending addendum: I have physically seen this patient, have supervised the medical residents activities, and agree with the H&P unless as otherwise noted. Assessment and Plan: Sepsis due to pyelonephritis/urinary tract infection- Admit on ertapenem IV, due to previous history of MDR UTI on 01/2019. Failure outpatient therapy with Cipro twice daily x3 days. Follow urine culture and sensitivities. Follow blood cultures and sensitivities. Completed 1.5 L normal saline bolus. Will now place on NSS + KCl 20 mEq at 100 mils per hour. Serial CBC with differential and BMP. Remainder of orders and notations as noted. Resident Activity Tracking Resident Involvement: Resident Care Provided Care Provided: Adult [facility] Medicine (1) Hyperlipidemia Hyperlipidemia type: mixed hyperlipidemia Qualified Code(s): E78.2 - Mixed hyperlipidemia (2) HTN (hypertension) Hypertension type: essential hypertension Qualified Code(s): I10 - Essential (primary) hypertension
--- NOTE | 2019-11-16 05:16 | Communication Note ---
Date of Service: November 16, 2019 Given pts septic picture and last infection concerning for perinephric abscess with MDR E. coli CT-Ab/Pelv w/o contrast ordered.
[2019-11-16] MEDS ORDERED: ALPRAZolam 0.25 MG TABLET PO PRN (06:12)
[2019-11-16] MEDS ORDERED: ACETAMINOPHEN 325 MG TAB PO PRN (06:12)
[2019-11-16] MEDS ORDERED: LEVALBUTEROL TARTRATE 15 GM HFA.AER.AD INH PRN (06:12)
--- NOTE | 2019-11-16 07:09 | CT Scan Report ---
CT abd pelvis wo con CT DOSE: 490.74 mGy.cm HISTORY: Pyelonephritis L pyelo. Prior hx with concern for perineph absces TECHNIQUE: Multiaxial CT images of the abdomen and pelvis were performed without contrast. A dose lo wering technique was utilized adhering to the principles of ALARA. COMPARISON STUDY: 02/13/2019 FINDINGS: Lung bases are clear. Several hepatic cysts are unchanged. Spleen and pancreas are unremark able. Prior cholecystectomy. Kidneys negative for nephrocalcinosis. Slight fullness left renal collecting system compared to the r ight with slight fullness left ureter. This is nonspecific but potentially relates to a recently pass ed calculus. The bladder is midline. No abnormal calcifications. Bowel pattern is nonobstructive. 2 cm right ovarian cyst. Inguinal regions are unremarkable. IMPRESSION: 1. Slight fullness left renal collecting system and left ureter possibly secondary to a recently pass ed calculus. 2. This appearance may also relate to underlying component of pyelonephritis. 3. No evidence for abscess collection or obstruction. 4. 2 cm right ovarian cyst. 5. Several stable hepatic cysts. 6. Prior cholecystectomy. IMPRESSION: No significant abnormality identified within the abdomen or pelvis. ACT 112: Negative or not required by law. The above report was generated using voice recognition software. It may contain grammatical, syntax or spelling errors. Electronically signed by: Lonnie Myrick M.D. 11/16/2019 7:08 AM
[2019-11-16] MEDS: POTASSIUM CHLORIDE 20 MEQ TABCR PO SCH ×4 (07:16→21:05)
[2019-11-16] MEDS: NSS + 20MEQ KCL 20 MEQ/1,000 ML BAG IV SCH ×2 (07:17→17:22)
--- NOTE | 2019-11-16 07:26 | Emergency Department Note ---
History of Present Illness General Chief complaint: Urinary Symptoms Stated complaint: FEVER,UTI Time Seen by Provider: 11/16/19 02:07 History of Present Illness Maximum Pain Intensity: 1 This is a 53-year-old female presenting to the emergency department for evaluation of dysuria and mild left flank pain worsening over the past 1 to 2 days. Patient does have a recent history of bronchitis and is on day 3 of a prednisone taper. The patient has a history of pyelonephritis in the past that cultured a vuabb-nnsy-ehlwzpgyv E. coli. This was approximately 10 months ago, and she has had at least one clean urine culture since being treated for this. The patient did take a few doses of Cipro, but this has not significantly improved her symptoms. She began running a fever tonight and now presents to the ER for further evaluation. She rates her current discomfort a 1/10. She does not have any recent travel history or any known exposure to disease. Home Medications Home Medications Medication Instructions Recorded Confirmed Type calcium carbonate [Calcium 500] 1,000 mg PO BID 02/13/19 11/16/19 History cholecalciferol (vitamin D3) 5,000 unit PO DAILY 02/13/19 11/16/19 History [Vitamin D3] alprazolam 0.25 mg tablet 0.25 mg PO BID PRN #30 tab 11/11/19 11/16/19 Rx benzonatate 100 mg capsule 100 mg PO BID #30 cap 11/11/19 11/16/19 Rx escitalopram oxalate 5 mg tablet 10 mg PO DAILY #60 tab 11/11/19 11/16/19 Rx levalbuterol tartrate 45 2 puff INHALATION Q6H PRN #15 gm 11/11/19 11/16/19 Rx mcg/actuation aerosol inhaler losartan 50 mg tablet 50 mg PO BID #60 tab 11/11/19 11/16/19 Rx meloxicam 7.5 mg tablet 7.5 mg PO DAILY #30 tab 11/11/19 11/16/19 Rx pantoprazole 40 mg tablet,delayed 40 mg PO DAILY #30 tab 11/11/19 11/16/19 Rx release prednisone 10 mg tablet See Rx Instructions PO DAILY #20 11/11/19 11/16/19 Rx tab Allergies Allergy/AdvReac Type Severity Reaction Status Date / Time latex Allergy Unknown skin Verified 11/16/19 03:24 sensitivity level 1 Penicillins Allergy Unknown Redness of Verified 11/16/19 03:24 Skin Tetracyclines Allergy Unknown ALLERGY TO Verified 11/16/19 03:24 OXYTETRACYCLINE (TERRAMYCIN) Past Med/Surg History Medical History Abnormal TSH Acute kidney injury Acute pyelonephritis (Acute) Fibromyalgia GERD without esophagitis Hepatic cyst (Acute) HTN (hypertension) (Chronic) Hyperlipidemia Insomnia Transaminitis Surgical History H/O breast biopsy History of D&C S/P abdominal hysterectomy and left salpingo-oophorectomy Social History Preferred Language: Jordanian Communication Ability: Effective Biometrics Technician Required: No Beliefs That Will Affect Care: None marital status: Current Living Situation: Spouse and Family current occupational status: employed Feels Safe at Home: Yes Safety Concerns: Feels Safe At This Time Smoking Status: Never smoker Hx Alcohol Use: No Hx Substance Use: No Seatbelt Use: always Review of Systems A total of 10 systems reviewed and were otherwise negative Physical Exam Vital Signs Vital Signs - 24 hr 11/16/19 02:01 11/16/19 03:31 11/16/19 04:00 Temperature 38.4 C H Temperature Source Oral Pulse Rate 138 H Pulse Rate [Right Finger] 107 H 114 H Pulse Rhythm [Right Finger] Regular Pulse Strength [Right Finger] Normal Respiratory Rate 20 16 18 Respiratory Effort / Characteristics Non-Labored Spontaneous Non-Labored Non-Labored Respiratory Depth Normal Normal Blood Pressure 148/77 H Blood Pressure [Right Arm] 125/61 Blood Pressure Mean 100 Blood Pressure Mean [Right Arm] 82 Blood Pressure Position [Right Arm] Lying Pulse Oximetry 95 97 95 Oxygen Delivery Method Room Air Room Air Room Air Sepsis Recent Fever Within 48 Hours Yes Sepsis Action Taken by Nursing Physician Notified VITALS: Vitals are noted on the nurse's note and reviewed by myself. Vital signs with fever and tachycardia. GENERAL: Well-developed, well-nourished, white female who appears ill but not toxic. She is cooperative with the exam. HEAD: Normocephalic atraumatic. EARS: External ear normal. External auditory canals clear, tympanic membranes pearly banks without erythema or effusion bilaterally. EYES: Pupils equal round and reactive to light and accommodation. Conjunctivae without injection, sclerae without icterus. Extraocular movements intact. HEART: Regular rate and rhythm without murmurs gallops or rubs. LUNGS: Coarse breath sounds throughout with persistent dry cough ABDOMEN: Positive normal bowel sounds x 4. Soft with mild abdominal pain in the suprapubic region. Mild left-sided flank tenderness. MUSCULOSKELETAL: No muscle atrophy, erythema, or edema noted. Full range of motion in all extremities. NEURO: Patient was alert and oriented to person place and time. CN II through XII grossly intact. SKIN: The skin was without rashes, erythema, edema, or bruising. Capillary refill less than 2 seconds. Course Administered Medications Acetaminophen (Tylenol) 650 mg PO Q4H PRN PRN Reason: pain/fever Stop: 12/16/19 06:11 Last Admin: 11/16/19 15:51 Dose: 650 mg Documented by: [id number] Acetaminophen/Codeine Phosphate (Tylenol W/Codeine #3) 1 tab PO HS PRN PRN Reason: Pain Stop: 12/16/19 12:28 Last Admin: 11/16/19 21:08 Dose: 1 tab Documented by: [id number] Benzonatate (Tessalon Perle) 100 mg PO BID [facility] Stop: 12/16/19 08:59 Last Admin: 11/16/19 21:05 Dose: 100 mg Documented by: [id number] Admin: 11/16/19 09:22 Dose: 100 mg Documented by: [id number] Enoxaparin Sodium (Lovenox) 40 mg SQ Q24H LAURIE Stop: 12/16/19 07:59 Last Admin: 11/16/19 09:22 Dose: 40 mg Documented by: [id number] Escitalopram Oxalate (Lexapro Tab) 10 mg PO DAILY LAURIE Stop: 12/16/19 08:59 Last Admin: 11/16/19 09:22 Dose: 10 mg Documented by: [id number] Ertapenem 1,000 mg/ Sodium (Chloride) 60 mls @ 100 mls/hr IV Q24H LAURIE Stop: 11/27/19 03:59 Last Infusion: 11/17/19 05:08 Dose: 0 mls/hr Documented by: [id number] Admin: 11/17/19 04:32 Dose: 100 mls/hr Documented by: [id number] Potassium Chloride/Sodium Chloride (Normal Saline W/20 Meq Kcl) 20 meq in 1,000 mls @ 100 mls/hr IV .Q10H LAURIE Stop: 12/16/19 06:59 Last Admin: 11/17/19 00:40 Dose: 100 mls/hr Documented by: [id number] Infusion: 11/17/19 00:40 Dose: 100 mls/hr Documented by: [id number] Admin: 11/16/19 17:22 Dose: 100 mls/hr Documented by: [id number] Infusion: 11/16/19 17:17 Dose: 100 mls/hr Documented by: [id number] Admin: 11/16/19 07:17 Dose: 100 mls/hr Documented by: [id number] Pantoprazole Sodium (Protonix) 40 mg PO DAILY LAURIE Stop: 12/16/19 08:59 Last Admin: 11/16/19 09:21 Dose: 40 mg Documented by: [id number] Potassium Chloride (Klor-Con M20) 20 meq PO BID LAURIE Stop: 12/16/19 20:59 Last Admin: 11/16/19 21:05 Dose: 20 meq Documented by: [id number] Prednisone (Prednisone) 50 mg PO DAILY LAURIE Stop: 12/16/19 11:14 Last Admin: 11/16/19 12:41 Dose: 50 mg Documented by: [id number] Discontinued Medications Albuterol (Duoneb) 3 ml NEB NOW STA Stop: 11/16/19 03:14 Last Admin: 11/16/19 03:30 Dose: 3 ml Documented by: [id number] Sodium Chloride (Nss) 500 mls @ 999 mls/hr IV .Q31M LAURIE Stop: 11/16/19 03:00 Last Infusion: 11/16/19 04:28 Dose: 0 mls/hr Documented by: [id number] Admin: 11/16/19 02:30 Dose: 999 mls/hr Documented by: [id number] Sodium Chloride (Nss 1000ml) 1,000 mls @ 999 mls/hr IV .Q1H1M LAURIE Stop: 11/16/19 04:30 Last Infusion: 11/16/19 05:19 Dose: 0 mls/hr Documented by: [id number] Admin: 11/16/19 04:11 Dose: 999 mls/hr Documented by: [id number] Ertapenem (Invanz) 10 mls @ 2 mls/min IV NOW STA Stop: 11/16/19 04:03 Last Admin: 11/16/19 04:11 Dose: 2 mls/min Documented by: [id number] Ketorolac Tromethamine (Toradol) 15 mg IV NOW STA Stop: 11/16/19 02:22 Last Admin: 11/16/19 02:30 Dose: 15 mg Documented by: [id number] Potassium Chloride (Klor-Con M20) 20 meq PO Q4H LAURIE Stop: 11/16/19 14:31 Last Admin: 11/16/19 15:12 Dose: 20 meq Documented by: [id number] Admin: 11/16/19 10:35 Dose: 20 meq Documented by: [id number] Admin: 11/16/19 07:16 Dose: 20 meq Documented by: [id number] Prednisone (Prednisone) 10 mg PO DAILY LAURIE Stop: 11/17/19 09:01 Last Admin: 11/16/19 09:21 Dose: 10 mg Documented by: [id number] Critical Care Time I have personally spent greater than 30 minutes of critical care time in the direct management of this patient. This includes bedside care, interpretation of diagnostic studies, and testing, discussion with consultants, patient, and family members, and other required patient management activities. This 30 minutes is in excess of all separately billable procedures. Medical Decision Making Differential Diagnosis Differential diagnosis: Etiologies such as biliary colic, cholecystitis, hepatitis, pancreatitis, cardiac disease, pancreatitis, gastritis, peptic ulcer disease, appendicitis, cystitis, diverticulitis, mesenteric ischemia, inflammatory bowel disease, ileus, bowel obstruction, testicular/adnexal torsion, aortic pathology, shingles, as well as others were considered Laboratory Data Result diagrams: 11/16/19 02:28 11/16/19 02:28 Lab Results 11/16/19 11/16/19 11/16/19 Range/Units 02:12 02:12 02:28 WBC 13.23 H (4.8-10.8) K/uL RBC 4.10 L (4.2-5.4) M/uL Hgb 12.1 (12.0-16.0) g/dL Hct 36.1 L (37-47) % MCV 88.0 (80-100) fL MCH 29.5 (25-34) pg MCHC 33.5 (32-36) g/dL RDW Std Deviation 43.5 (36.4-46.3) fL RDW Coeff of Steffi 13.5 (11.5-14.5) % Plt Count 313 (130-400) K/uL MPV 9.1 (7.4-10.4) fL Immature Gran % (Auto) 0.2 % Neut % (Auto) 81.1 % Lymph % (Auto) 12.5 % Mccone % (Auto) 5.7 % Eos % (Auto) 0.2 % Baso % (Auto) 0.3 % Immature Gran # (Auto) 0.02 (0.00-0.02) K/uL Neut # (Auto) 10.74 H (1.4-6.5) K/uL Lymph # (Auto) 1.65 (1.2-3.4) K/uL Mccone # (Auto) 0.75 H (0.11-0.59) K/uL Eos # (Auto) 0.03 (0-0.5) K/uL Baso # (Auto) 0.04 (0-0.2) K/uL Sodium (136-145) mmol/L Potassium (3.5-5.1) mmol/L Chloride (98-107) mmol/L Carbon Dioxide (21-32) mmol/L Anion Gap (3-11) BUN (7-18) mg/dl Creatinine (0.6-1.2) mg/dl Est Cr Clr Drug Dosing ml/min Est GFR ( Amer) Est GFR (Non-Af Amer) BUN/Creatinine Ratio (10-20) Glucose (70-99) mg/dl Lactate (0.4-2.0) mmol/L Calcium (8.5-10.1) mg/dl Phosphorus (2.5-4.9) mg/dl Magnesium (1.8-2.4) mg/dl Total Bilirubin (0.2-1) mg/dl AST (15-37) U/L ALT (12-78) U/L Alkaline Phosphatase (45-117) U/L Total Protein (6.4-8.2) gm/dl Albumin (3.4-5.0) gm/dl Globulin (2.5-4.0) gm/dl Albumin/Globulin Ratio (0.9-2) Procalcitonin 0.23 (0-0.5) ng/ml Urine Color Fleming Urine Appearance Slightly Cloudy A (Clear) Urine pH (4.5-7.5) Ur Specific [place] 1.015 (1.000-1.030) Urine Protein Positive H (Negative) Urine Glucose (UA) (Negative) Urine Ketones (Negative) Urine Blood (Negative) Urine Nitrite (Negative) Urine Bilirubin (Negative) Urine Urobilinogen (Negative) Ur Leukocyte Esterase (Negative) Urine RBC 10-30 H (0-4) /hpf Urine WBC >30 H (0-5) /hpf Ur Epithelial Cells 10-20 H (0-5) /lpf Urine Bacteria 1+ H (Negative) Influenza Type A Ag (Neg) Influenza Type B Ag (Neg) 11/16/19 11/16/19 11/16/19 Range/Units 02:28 02:28 02:28 WBC (4.8-10.8) K/uL RBC (4.2-5.4) M/uL Hgb (12.0-16.0) g/dL Hct (37-47) % MCV (80-100) fL MCH (25-34) pg MCHC (32-36) g/dL RDW Std Deviation (36.4-46.3) fL RDW Coeff of Steffi (11.5-14.5) % Plt Count (130-400) K/uL MPV (7.4-10.4) fL Immature Gran % (Auto) % Neut % (Auto) % Lymph % (Auto) % Mccone % (Auto) % Eos % (Auto) % Baso % (Auto) % Immature Gran # (Auto) (0.00-0.02) K/uL Neut # (Auto) (1.4-6.5) K/uL Lymph # (Auto) (1.2-3.4) K/uL Mccone # (Auto) (0.11-0.59) K/uL Eos # (Auto) (0-0.5) K/uL Baso # (Auto) (0-0.2) K/uL Sodium 138 (136-145) mmol/L Potassium 3.1 L (3.5-5.1) mmol/L Chloride 105 (98-107) mmol/L Carbon Dioxide 26 (21-32) mmol/L Anion Gap 7.0 (3-11) BUN 21 H (7-18) mg/dl Creatinine 1.26 H (0.6-1.2) mg/dl Est Cr Clr Drug Dosing 51.9 ml/min Est GFR ( Amer) 56.7 Est GFR (Non-Af Amer) 48.9 BUN/Creatinine Ratio 16.8 (10-20) Glucose 98 (70-99) mg/dl Lactate 2.2 H* (0.4-2.0) mmol/L Calcium 9.1 (8.5-10.1) mg/dl Phosphorus 2.4 L (2.5-4.9) mg/dl Magnesium 1.8 (1.8-2.4) mg/dl Total Bilirubin 0.8 (0.2-1) mg/dl AST 15 (15-37) U/L ALT 25 (12-78) U/L Alkaline Phosphatase 97 (45-117) U/L Total Protein 7.2 (6.4-8.2) gm/dl Albumin 3.6 (3.4-5.0) gm/dl Globulin 3.6 (2.5-4.0) gm/dl Albumin/Globulin Ratio 1.0 (0.9-2) Procalcitonin (0-0.5) ng/ml Urine Color Urine Appearance (Clear) Urine pH (4.5-7.5) Ur Specific [place] (1.000-1.030) Urine Protein (Negative) Urine Glucose (UA) (Negative) Urine Ketones (Negative) Urine Blood (Negative) Urine Nitrite (Negative) Urine Bilirubin (Negative) Urine Urobilinogen (Negative) Ur Leukocyte Esterase (Negative) Urine RBC (0-4) /hpf Urine WBC (0-5) /hpf Ur Epithelial Cells (0-5) /lpf Urine Bacteria (Negative) Influenza Type A Ag (Neg) Influenza Type B Ag (Neg) 11/16/19 11/16/19 Range/Units 02:30 04:25 WBC (4.8-10.8) K/uL RBC (4.2-5.4) M/uL Hgb (12.0-16.0) g/dL Hct (37-47) % MCV (80-100) fL MCH (25-34) pg MCHC (32-36) g/dL RDW Std Deviation (36.4-46.3) fL RDW Coeff of Steffi (11.5-14.5) % Plt Count (130-400) K/uL MPV (7.4-10.4) fL Immature Gran % (Auto) % Neut % (Auto) % Lymph % (Auto) % Mccone % (Auto) % Eos % (Auto) % Baso % (Auto) % Immature Gran # (Auto) (0.00-0.02) K/uL Neut # (Auto) (1.4-6.5) K/uL Lymph # (Auto) (1.2-3.4) K/uL Mccone # (Auto) (0.11-0.59) K/uL Eos # (Auto) (0-0.5) K/uL Baso # (Auto) (0-0.2) K/uL Sodium (136-145) mmol/L Potassium (3.5-5.1) mmol/L Chloride (98-107) mmol/L Carbon Dioxide (21-32) mmol/L Anion Gap (3-11) BUN (7-18) mg/dl Creatinine (0.6-1.2) mg/dl Est Cr Clr Drug Dosing ml/min Est GFR ( Amer) Est GFR (Non-Af Amer) BUN/Creatinine Ratio (10-20) Glucose (70-99) mg/dl Lactate 0.9 (0.4-2.0) mmol/L Calcium (8.5-10.1) mg/dl Phosphorus (2.5-4.9) mg/dl Magnesium (1.8-2.4) mg/dl Total Bilirubin (0.2-1) mg/dl AST (15-37) U/L ALT (12-78) U/L Alkaline Phosphatase (45-117) U/L Total Protein (6.4-8.2) gm/dl Albumin (3.4-5.0) gm/dl Globulin (2.5-4.0) gm/dl Albumin/Globulin Ratio (0.9-2) Procalcitonin (0-0.5) ng/ml Urine Color Urine Appearance (Clear) Urine pH (4.5-7.5) Ur Specific [place] (1.000-1.030) Urine Protein (Negative) Urine Glucose (UA) (Negative) Urine Ketones (Negative) Urine Blood (Negative) Urine Nitrite (Negative) Urine Bilirubin (Negative) Urine Urobilinogen (Negative) Ur Leukocyte Esterase (Negative) Urine RBC (0-4) /hpf Urine WBC (0-5) /hpf Ur Epithelial Cells (0-5) /lpf Urine Bacteria (Negative) Influenza Type A Ag Neg for Influ A (Neg) Influenza Type B Ag Neg for Influ B (Neg) MDM Narrative Physical exam and history were performed. Nursing notes, EMR, and Medication List were personally reviewed. Patient appears to have fever, chills, tachycardia, and UTI symptoms. She additionally is with recent URI symptoms and is on prednisone. She did take Cipro and Pyridium at home for her symptoms without any improvement of discomfort. IV access was established and labs were obtained. Patient was hydrated with normal saline. She was given 15 mg IV Toradol for her fever. Lactic and blood cultures were gathered. Chest x-ray was performed. DuoNeb was provided to help with her breathing. She was placed on the desk monitor. The patient's blood work is as above and was reviewed. She does have an elevated white blood cell count of 13,000. She does not have a significant anemia. She appears to be with a slightly elevated creatinine of 1.26 today, which she has had similar readings in the past, although her baseline is more consistent with 0.8 or 0.9. This could also be elevated in the setting of severe sepsis. Urine is difficult to evaluate as the Pyridium is altering the colorimetric testing. Culture is pending. Influenza swab is negative. Chest x-ray was reviewed by myself and radiology showing no acute process. Unfortunately her lactic acid is elevated at 2.2, and she was given additional fluids. I have concerned that she is uroseptic and review of her past cultures show a multidrug-resistant E. coli. Because of this she was given empiric Invanz here in the ER. The case was discussed with my attending physician who remained involved in care decision making. I did include the hospitalist team in her care as the patient does not seem well for discharge home. Please see their dictation for further patient course, plan, and disposition. The chart was completed utilizing [employer] Voice Recognition Software. Grammatical errors, random word insertions, pronoun errors, and incomplete sent ences are an occasional consequence of this system due to software limitations, ambient noise, and hardware issues. Any formal questions or concerns about the content, text, or information contained within the body of this dictation should be directly addressed to the provider for clarification. . Impression & Plan Sepsis, Acute kidney injury, Complicated UTI (urinary tract infection) Discharge Plan Visit Data *Final* Discharge Date/Time: 11/16/19 05:37 Chief Complaint: Urinary Symptoms Stated Complaint: FEVER,UTI ED Provider: Alvaro Nolasco ED Midlevel Provider: Oscar Elias Discharge Problem: Sepsis, Acute kidney injury, Complicated UTI (urinary tract infection) Patient Disposition: Admitted As Inpatient Discharge Instructions Interventions: ED Discharge Assessment Last Done: 11/16/19 05:37 Discharge Problem: Sepsis Qualifiers: Sepsis type: sepsis due to unspecified organism Sepsis acute organ dysfunction status: unspecified Qualified Code(s): A41.9 - Sepsis, unspecified organism
--- NOTE | 2019-11-16 08:04 | XRay Report ---
XR chest 1V portable HISTORY: Cough and fever COMPARISON: Chest 11/11/2019. FINDINGS: The lungs are clear. Cardiac silhouette is normal in size. No pleural effusions. No pneumot horax. IMPRESSION: No acute process. ACT 112: Negative or not required by law. Electronically signed by: Clinton Cates M.D. 11/16/2019 8:03 AM
[2019-11-16 08:54] LABS: Magnesium 1.8 mg/dl (1.8-2.4); Phosphorus 2.4 mg/dl (2.5-4.9)
[2019-11-16] MEDS ORDERED: predniSONE 10 MG TABLET PO SCH (09:00)
[2019-11-16] MEDS: PANTOprazole 40 MG TAB PO SCH (09:21)
[2019-11-16] MEDS: ENOXAPARIN INJ 40 MG/0.4 ML SYR SQ SCH (09:22)
[2019-11-16] MEDS: BENZONATATE 100 MG CAPSULE PO SCH ×2 (09:22→21:05)
[2019-11-16] MEDS: ESCITALOPRAM OXALATE 10 MG TAB PO SCH (09:22)
--- NOTE | 2019-11-16 12:28 | Hospitalist Progress Note ---
Date of Service November 16, 2019 Assessment & Plan (1) Complicated UTI (urinary tract infection): Anahi is a 53-year-old female with a past medical history of fibromyalgia, hypertension, hyperlipidemia, and complicated UTI with MDR E. coli who presents with 4-5 days of urinary symptoms and left flank pain secondary to pyelonephritis with sepsis. Sepsis 2/2 pyelonephritis Febrile to 102.0 by home oral thermometer, 38.4 C in ED. Tachycardic to 114 with lactate 2.2 which normalized to 0.8 with aggressive fluid treatment. Leukocytosis to 13 Patient recently had a MDR UTI 01/2019 which required ertapenem treatment Her current symptoms did not improve with ciprofloxacin twice daily x3 days -CT abd/pelvis: unchanged hepatic cysts, slight fullness L renal collecting system, L ureter secondary to passed stone or pyelonephritis, no noted abscess or obstruction, right 2cm ovarian cyst with prior cholecystectomy. UA, UC pending. UA may not be accurate due to Pyridium altering the colorimetric analysis Blood cultures pending Status post 1.5 L NSS bolus. Continue NSS +20 KCl at 100 cc/h continue IV ertapenem Resolving bronchitis/URI Patient has had 1 month of improving URI symptoms with lingering cough, currently finishing a prednisone taper Chest x-ray does not show evidence of lobar pneumonia Low suspicion for pulmonary bacterial infection. Defer treatment of pulmonary pathogens, pro-[place] unremarkable -pt with Hx of reactive airway disease, will start back on prednisone 50mg daily. DuoNebs every 4 hours as needed -incentive spirometry MANISH versus prerenal azotemia Patient with prior creatinine baseline less than 1, acutely elevated to 1.26 on admission Received Toradol 15 mg in ED Hold further/home NSAIDs and ARB Continue NSS +20 KCl at 100 cc/h -will monitor Cr Hypokalemia Hypokalemic to 3.1 on admission Potassium chloride 20 M EQ every 4 hours x3 doses IV FM with potassium as above Fibromyalgia Hold meloxicam in the setting of MANISH Hypertension Hold losartan in the setting of MANISH GERD Continue pantoprazole 40 mg daily Anxiety Continue STOCK WETTER alprazolam 0.25 mg p.o. twice daily DVT prophylaxis: Lovenox 40 mg subcu Diet: Regular Disposition: Medical surgical CODE STATUS: Full code (2) Bronchitis: (3) Hyperglycemia: (4) Hyperlipidemia: (5) DVT prophylaxis: (6) Acute pyelonephritis: (7) HTN (hypertension): Admission and Anticipated Discharge Date Admission Date: November 16, 2019 Supervising Physician Co-Signing Physician Notes I personally examined the patient and verified all phillips points of history and exam, discussed case, and agree with decision making with Dr Trejo. cough nonstop. urine symptoms. vitals noted nad heent nc at mmm lungs more quiet than expected no r/r/w good effort no accessory muscles. skin no rashes no pallor or icterus. pyelonephritis (presumed ESBL culprit culture pending) w sepsis present on admission - continue ertapenem and supportive care pending cultures. anticipate improvement. cough/sob - seems to have asthmatic like response to viral infection - denies baseline asthma - but did feel better on higher doses of steroids. resume prednisone at higher dosing for now, follow. otherwise as above Subjective Pt seen this AM. Stated that she was still having the muscle spasms in her bladder after voiding with left flank pain. Denied any further fevers, chills or night sweats. Denies any headache, changes to vision, dizziness, weakness, chest pain, SOB, palpitations, abdominal pain, diarrhea or constipation, swelling in hands or feet or numbness or tingling anywhere. Review of Systems Review of Systems: All systems reviewed & are unremarkable except as noted in Subjective Physical Exam Physical Exam: General: Alert, oriented. No acute distress Skin: No noted rashes or bruises Psych: Appropriate mood and affect Neuro: No gross deficits HEENT: NC/AT Chest: Nontender to palpation. CV: RRR, Normal s1, s2. No murmurs appreciated Resp: Breath sounds clear but decreased at the bases bilaterally, no increased effort of breathing. Abdomen: Soft, nontender, nondistended. No guarding. +suprapubic tenderness Extremities: No edema in lower extremities bilaterally. Results & Data ([facility]) Vital Signs (Past 12 Hours) Vital Signs Temp Pulse Pulse Resp BP BP Pulse Ox 11/16/19 10:39 104 H 11/16/19 07:57 37.0 C 124 H 18 128/72 95 11/16/19 05:50 36.9 C 72 18 150/74 H 96 11/16/19 05:37 119 H 18 126/62 99 11/16/19 04:00 114 H 18 125/61 95 11/16/19 03:31 107 H 16 97 11/16/19 02:01 38.4 C H 138 H 20 148/77 H 95 Resident Activity Tracking Resident Involvement: Resident Care Provided Care Provided: Adult Hospital Medicine (1) Hyperlipidemia Hyperlipidemia type: mixed hyperlipidemia Qualified Code(s): E78.2 - Mixed hyperlipidemia (2) HTN (hypertension) Hypertension type: essential hypertension Qualified Code(s): I10 - Essential (primary) hypertension
[2019-11-16] MEDS: predniSONE 50 MG TAB PO SCH (12:41)
[2019-11-16] MEDS: ACETAMINOPHEN W/CODEINE #3 1 TAB PO PRN (21:08)
[2019-11-17] MEDS: NSS + 20MEQ KCL 20 MEQ/1,000 ML BAG IV SCH (00:40)
[2019-11-17] MEDS: ERTAPENEM SODIUM 1,000 MG in SODIUM CHLORIDE 0.9% 50 ML IV SCH (04:32)
[2019-11-17 08:09] LABS: Basophils # (auto) 0.03 K/uL (0-0.2); Basophils % (auto) 0.2 %; Eosinophils # (auto) 0.04 K/uL (0-0.5); Eosinophils % (auto) 0.3 %; Hematocrit (blood only) 32.1 % (37-47); Hemoglobin 10.8 g/dL (12.0-16.0); Immature Granulocytes # (auto) 0.02 K/uL (0.00-0.02); Immature Granulocytes % (auto) 0.1 %; Lymphocytes # (auto) 1.96 K/uL (1.2-3.4); Lymphocytes % (auto) 13.6 %; Mean Corpuscular Hemoglobin 30.1 pg (25-34); Mean Corpuscular Hgb Conc 33.6 g/dL (32-36); Mean Corpuscular Volume 89.4 fL (80-100); Mean Platelet Volume 9.1 fL (7.4-10.4); Monocytes # (auto) 1.37 K/uL (0.11-0.59); Monocytes % (auto) 9.5 %; Neutrophils % (auto) 76.3 %; Platelet Count 292 K/uL (130-400); RDW Coefficient of Variation 13.8 % (11.5-14.5); RDW Standard Deviation 45.9 fL (36.4-46.3); Red Blood Count 3.59 M/uL (4.2-5.4); White Blood Count 14.42 K/uL (4.8-10.8)
[2019-11-17 08:50] LABS: BUN Creatinine Ratio 19.1 (10-20); Calcium 8.6 mg/dl (8.5-10.1); Creatinine Clr Calc Pharmacy 91.2 ml/min; Est GFR (African American) 111.6; Est GFR (Non-African American) 96.3; Magnesium 2.1 mg/dl (1.8-2.4)
[2019-11-17] MEDS: PANTOprazole 40 MG TAB PO SCH (09:02)
[2019-11-17] MEDS: predniSONE 50 MG TAB PO SCH (09:02)
[2019-11-17] MEDS: POTASSIUM CHLORIDE 20 MEQ TABCR PO SCH ×2 (09:03→21:20)
[2019-11-17] MEDS: ESCITALOPRAM OXALATE 10 MG TAB PO SCH (09:03)
[2019-11-17] MEDS: BENZONATATE 100 MG CAPSULE PO SCH ×2 (09:03→21:20)
[2019-11-17] MEDS: ENOXAPARIN INJ 40 MG/0.4 ML SYR SQ SCH (09:04)
--- NOTE | 2019-11-17 16:21 | Hospitalist Progress Note ---
Date of Service November 17, 2019 Assessment & Plan (1) Complicated UTI (urinary tract infection): Anahi is a 53-year-old female with a past medical history of fibromyalgia, hypertension, hyperlipidemia, and complicated UTI with MDR E. coli who presents with 4-5 days of urinary symptoms and left flank pain secondary to pyelonephritis with sepsis. Sepsis 2/2 pyelonephritis On admission, febrile to 102.0 by home oral thermometer, 38.4 C in ED. Tachycardic to 114 with lactate 2.2 which normalized to 0.8 with aggressive fluid treatment. Leukocytosis to 13,000. -No improvement of symptoms with home ciprofloxacin Patient recently had a MDR UTI 01/2019 which required ertapenem treatment -CT abd/pelvis: unchanged hepatic cysts, slight fullness L renal collecting system, L ureter secondary to passed stone or pyelonephritis, no noted abscess or obstruction, right 2cm ovarian cyst with prior cholecystectomy. UA may not be accurate due to pt's previous use of Pyridium. -Urine Cx with E.coli growing, sensitivities pending; also Corynebacterium not urealyticum with less than 30,000 colonies growing. No sensitivities to follow. Blood cultures with E.coli growth in 1, NGTD in the second. Repeat blood cultures ordered 11/17. Status post 1.5 L NSS bolus in ED on arrival, NSS +20 KCl at 100 cc/h discontinued 11/17. -Pt symptomatically improving continue IV ertapenem until sensitivities for Urine E. coli are back. -can consider urology f/u on discharge considering this is a second pyelonephritis in one year. Resolving bronchitis/URI Patient has had 1 month of improving URI symptoms with lingering cough, currently finishing a prednisone taper Chest x-ray does not show evidence of lobar pneumonia pro-Kwabena unremarkable -pt with Hx of reactive airway disease, will start back on prednisone 50mg daily. DuoNebs every 4 hours as needed -incentive spirometry -codeine with tyelonol #3 to help with cough at night MANISH versus prerenal azotemia -Resolved Patient with prior creatinine baseline less than 1, acutely elevated to 1.26 on admission -will continue holding ARB given BP currently well controlled with systolic in 120s. -Fluids discontinued. -will monitor Cr Hypokalemia -Resolved Hypokalemic to 3.1 on admission Potassium chloride 20 M EQ every 4 hours x3 doses on admission will discontinue fluids with potassium as above. Fibromyalgia Continue to hold meloxicam Hypertension Continue to hold losartan as above given BP currently not elevated. GERD Continue pantoprazole 40 mg daily Anxiety Continue INSTALLER alprazolam 0.25 mg p.o. twice daily DVT prophylaxis: Lovenox 40 mg subcu Diet: Regular Disposition: Medical surgical CODE STATUS: Full code (2) Bronchitis: (3) Hyperglycemia: (4) Hyperlipidemia: (5) DVT prophylaxis: (6) Acute pyelonephritis: (7) HTN (hypertension): Admission and Anticipated Discharge Date Admission Date: November 16, 2019 Supervising Physician Co-Signing Physician Notes Resident Physician Supervision Note: I interviewed and examined the patient. Discussed with Dr. Nahed Trejo and agree with findings and plan as documented in the note. Any exceptions or clarifications are listed here: none. Pt reports feeling much better. Flank/back pain improved/resolved. No fevers/chills. Eating better. Main complaint is coughing. Exam: gen - NAD, coughing heart - RRR lungs - decreased BS expiratory phase, no rales abd - soft NT ND BS+ no flank tenderness ext - no edema blood cx's 1/2 + for GNR urine cx with GNR and corynebacerium A/P: 1. septicemia 2nd to left-sided pyelonephritis/UTI 2. acute bronchitis / ? asthma exacerbation 3. acute kidney injury - likely sepsis-associated ATN - improved 4. hypokalemia repeat blood cx's today for test of cure cont ertapenem given prior h/o ESBL in January 2019 cont prednisone/bronchodilators for acute bronchitis follow cx's to completion replace low K suspect she is going to need IV abx post-d/c Documented By: Sanjay Ulrich MD Subjective Pt seen this AM. States she feels better, has improvement of her muscle spasms she gets when she urinates but still with some suprapubic pain. Denies any nausea or flank pain today. States her cough is also improved. Denies any headache, changes to vision, chest pain, SOB, palpitations, abdominal pain, diarrhea or constipation, swelling in hands or feet or numbness or tingling anywhere. Review of Systems Review of Systems: All systems reviewed & are unremarkable except as noted in Subjective Physical Exam Physical Exam: General: Alert, oriented. No acute distress Skin: No noted rashes or bruises Psych: Appropriate mood and affect Neuro: No gross deficits HEENT: NC/AT Chest: Nontender to palpation. CV: RRR, Normal s1, s2. No murmurs appreciated Resp: Breath sounds clear, decreased at the bases bilaterally but improving, no increased effort of breathing. Abdomen: Soft, nontender, nondistended. No guarding. +suprapubic tenderness Extremities: No edema in lower extremities bilaterally. Results & Data ([facility]) Vital Signs (Past 12 Hours) Vital Signs Temp Pulse Pulse Resp BP Pulse Ox 11/17/19 15:29 36.7 C 76 16 139/72 96 11/17/19 08:06 36.8 C 78 16 128/75 96 Resident Activity Tracking Resident Involvement: Resident Care Provided Care Provided: Adult Hospital Medicine (1) Hyperlipidemia Hyperlipidemia type: mixed hyperlipidemia Qualified Code(s): E78.2 - Mixed hyperlipidemia (2) HTN (hypertension) Hypertension type: essential hypertension Qualified Code(s): I10 - Essential (primary) hypertension
[2019-11-17] MEDS: ACETAMINOPHEN W/CODEINE #3 1 TAB PO PRN (21:18)
--- NOTE | 2019-11-17 21:21 | Billing Data ---
Date of Service November 17, 2019 Coding Level of Care Code 51790 Subseq Hosp Care Lvl 3
--- NOTE | 2019-11-18 00:22 | Billing Data ---
Date of Service November 18, 2019 Coding Level of Care Code 55773 Initial Inpt Care Lvl 3
[2019-11-18] MEDS: ERTAPENEM SODIUM 1,000 MG in SODIUM CHLORIDE 0.9% 50 ML IV SCH (03:43)
[2019-11-18 07:40] LABS: Basophils # (auto) 0.07 K/uL (0-0.2); Basophils % (auto) 0.6 %; Eosinophils # (auto) 0.17 K/uL (0-0.5); Eosinophils % (auto) 1.4 %; Hematocrit (blood only) 33.6 % (37-47); Hemoglobin 11.2 g/dL (12.0-16.0); Immature Granulocytes # (auto) 0.05 K/uL (0.00-0.02); Immature Granulocytes % (auto) 0.4 %; Lymphocytes % (auto) 27.1 %; Mean Corpuscular Hemoglobin 29.7 pg (25-34); Mean Corpuscular Hgb Conc 33.3 g/dL (32-36); Mean Corpuscular Volume 89.1 fL (80-100); Mean Platelet Volume 8.9 fL (7.4-10.4); Monocytes # (auto) 0.81 K/uL (0.11-0.59); Monocytes % (auto) 6.4 %; Neutrophils # (auto) 8.06 K/uL (1.4-6.5); Neutrophils % (auto) 64.1 %; Platelet Count 336 K/uL (130-400); RDW Coefficient of Variation 13.8 % (11.5-14.5); RDW Standard Deviation 45.7 fL (36.4-46.3); Red Blood Count 3.77 M/uL (4.2-5.4); White Blood Count 12.56 K/uL (4.8-10.8)
[2019-11-18] MEDS: ENOXAPARIN INJ 40 MG/0.4 ML SYR SQ SCH (07:42)
[2019-11-18 08:08] LABS: BUN Creatinine Ratio 19.9 (10-20); Calcium 8.8 mg/dl (8.5-10.1); Est GFR (African American) 95.4; Est GFR (Non-African American) 82.3; Potassium 3.8 mmol/L (3.5-5.1)
[2019-11-18] MEDS: BENZONATATE 100 MG CAPSULE PO SCH (08:43)
[2019-11-18] MEDS: ESCITALOPRAM OXALATE 10 MG TAB PO SCH (08:43)
[2019-11-18] MEDS: predniSONE 50 MG TAB PO SCH (08:43)
[2019-11-18] MEDS: POTASSIUM CHLORIDE 20 MEQ TABCR PO SCH (08:43)
[2019-11-18] MEDS: PANTOprazole 40 MG TAB PO SCH (08:43)
--- NOTE | 2019-11-18 13:28 | Discharge Summary ---
Date of Service November 18, 2019 Admission HPI Per Admitting Provider Anahi is a 53-year-old female with a past medical history of multidrug- resistant UTI, GERD, fibromyalgia, and hyperlipidemia who presents with approximately 1 week of dysuria and a fever to 102.0 prior to admission by home oral thermometer. Depth reports that her urinary symptoms began 5 days prior to admission. She was experiencing burning with urination, increased urinary frequency, small volume voids and on day of admission she had a 102.0 degree fever by oral thermometer along with left-sided flank/back pain. She took 3 days of ciprofloxacin p.o. twice daily which did not improve her symptoms. She had a prior complicated UTI on 02/13/2019 with multidrug-resistant E. coli which required treatment with ertapenem. She has nausea, has had one episode of nonbloody nonbilious emesis. She took Pyridium as well for pain, which may interfere with the colorimetric analysis of her UA. On admission she has a lactate of 2.2, leukocytosis to 13, and temperature of 38.4. She is tachycardic. Prior to this she has had a resolving URI with flulike symptoms which began 4 weeks ago and has been steadily improving but which have a lingering cough. She is completing a prednisone taper with 2 days left of 10 mg daily for bronchitis. She is not short of breath, and does not have chest pain/chest pressure. Rapid flu was negative. Medical history: Reviewed Surgical history: Reviewed in EMR Allergies: Reviewed. Allergic to latex and penicillins. Social: Lives at home with her , ambulates independently. No current or former tobacco history. No alcohol use. No recreational drug use. She works as a [employer] nurse. CODE STATUS: Full code Admission Exam Per Admitting Provider General: A&Ox3. NAD. Cooperative. HEENT: Atraumatic, normocephalic. Mucous membranes tacky. Pulm: CTAB A&P. -wheezes, -rales, -rhonchi. Symmetrical chest rise. No increase work of breathing. No respiratory distress. Cardiac: Tachycardic, trace systolic murmur. Radial pulses intact and symmetrical. Abdominal: Mild left lower quadrant tenderness, no rebound, nonrigid, no guarding. Soft. Left-sided CVA tenderness. Neuro: Pupils are equal and react to light and accomidation. Visual acuity grossly intact. EoM intact without nystagmus. No facial asymmetry Hearing is grossly intact. Phonation is normal without dysarthria. Tongue protrudes midline. Sensory: Light touch, pinprick intact in upper and low extremities without deficit or asymmetry. Strength: RUE: Shoulder flexion/extension/internal rotation/external rotation, elbow fle xion/extension, finger flexion/extension, negative cutter strength, interosseous 5/5 LUE: Shoulder flexion/extension/internal rotation/external rotation, elbow flexion/extension, finger flexion/extension, negative cutter strength, interosseous 5/5 RLE: Hip flexion, knee flexion/extension, ankle plantar flexion/dorsiflexion 5/5 LLE: Hip flexion, knee flexion/extension, ankle plantar flexion/dorsiflexion 5/5 Principal Diagnosis Pyelonephritis, sepsis, bacteremia Discharge Exam General: Alert, oriented. No acute distress Skin: No noted rashes or bruises Psych: Appropriate mood and affect Neuro: No gross deficits HEENT: NC/AT Chest: Nontender to palpation. CV: RRR, Normal s1, s2. No murmurs appreciated Resp: Breath sounds clear, decreased at the bases bilaterally but improving, no increased effort of breathing. Abdomen: Soft, nontender, nondistended. No guarding. +suprapubic tenderness Extremities: No edema in lower extremities bilaterally. Discharge Data Allergies Allergy/AdvReac Type Severity Reaction Status Date / Time latex Allergy Unknown skin Verified 11/16/19 03:24 sensitivity level 1 Penicillins Allergy Unknown Redness of Verified 11/16/19 03:24 Skin Tetracyclines Allergy Unknown ALLERGY TO Verified 11/16/19 03:24 OXYTETRACYCLINE (TERRAMYCIN) Consultations 11/16/19 04:09 ED Decision to Admit Stat Ordered Studies 11/16/19 05:15 CT abd pelvis wo con Urgent Hospital Course (1) Complicated UTI (urinary tract infection): Anahi is a 53-year-old female with a past medical history of fibromyalgia, hypertension, hyperlipidemia, and complicated UTI with MDR E. coli who presented with 4-5 days of urinary symptoms and left flank pain secondary to pyelonephritis with sepsis. Admitted on Nov 16 2019 and discharged on Nov 18 2019. Sepsis 2/2 pyelonephritis On admission, febrile to 102.0 by home oral thermometer, 38.4 C in ED. Tachycardic to 114 with lactate 2.2 which normalized to 0.8 with aggressive fluid treatment. Leukocytosis to 13,000. -No improvement of symptoms with home ciprofloxacin Patient recently had a MDR UTI 01/2019 which required ertapenem treatment -CT abd/pelvis: unchanged hepatic cysts, slight fullness L renal collecting system, L ureter secondary to passed stone or pyelonephritis, no noted abscess or obstruction, right 2cm ovarian cyst with prior cholecystectomy. UA may not be accurate due to pt's previous use of Pyridium. -Urine Cx with E.coli growing, resistant only to Bactrim and the fluorquinolones; sensitive to all cephalosporins. - Urine Cx also growing Corynebacterium not urealyticum with less than 30,000 colonies growing. No sensitivities to follow. Blood cultures with E.coli growth in 1, NGTD in the second. Repeat blood cultures ordered 11/17-NGTD. Status post 1.5 L NSS bolus in ED on arrival, NSS +20 KCl at 100 cc/h discontinued 11/17. -Pt symptomatically improving on discharge. IV ertapenem-3 doses; discharged on 11 days of PO cefdinir. -can consider urology f/u on discharge considering this is a second pyelonephritis in one year. Resolving bronchitis/URI Patient has had 1 month of improving URI symptoms with lingering cough, cu rrently finishing a prednisone taper Chest x-ray does not show evidence of lobar pneumonia pro-Kwabena unremarkable -pt with Hx of reactive airway disease, prednisone 50mg daily. Discharged with 2 more days of treatment. DuoNebs every 4 hours as needed -incentive spirometry -codeine with tyelonol #3 to help with cough at night, discharged with this as well. 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 twice daily DVT prophylaxis: Lovenox 40 mg subcu Diet: Regular CODE STATUS: Full code (2) Bronchitis: (3) Hyperglycemia: (4) Hyperlipidemia: (5) DVT prophylaxis: (6) Acute pyelonephritis: (7) HTN (hypertension): Total Time Total Time Spent Total Time Spent (In Minutes): <30 Discharge Plan Discharge Items Patient Disposition: Home - Self-Care Reason For Visit: COMPLICATED UTI / UROSEPSIS Discharge Diagnosis: Pyelonephritis Activity: Per Instructions section Non-emergency contact: Primary Care Provider and Urologist Call non-emergency contact if: your pain is not controlled and you have a fever Follow-up/Referrals: Americo Gilbert PA-C [Primary Care Provider] - 11/24/19 2:15 pm (Please arrive for your appointment by 2:00p.m. If you need to reschedule your appointment, please call [phone].) Diet: Heart Healthy Addtl Attending Provider Instructions: Mrs. Dillard, you were admitted and treated for an infection of your kidneys. We are discharging you with 11 more days of an oral antibiotic, cefdinir. Please take 1 pill twice a day starting with your first pill TONIGHT. We are also discharging you with 2 more days of Prednisone 50mg to help with your breathing and cough, as well as Tylenol #3 with codeine. Start taking the Prednisone tomorrow. Use the Tylenol with codeine at nighttime to help with the cough as it can make you drowsy. We ask that you follow up with a urologist after discharge (given that you have had pylelonephritis twice in the last year), as well as your primary care provider. We think that you should be able to return to work on Friday. Should you feel you need more time, please followup with your primary care provider. And as discussed, we'll be happy to help with your [place] paperwork. You can have that sent/brought to the hospitalist office here at [facility]. Should your symptoms return or you develop fevers, chills or night sweats once more, please return to the emergency room. It was a pleasure taking care of you during your stay here! Pending Studies at Discharge: No Stand-Alone Forms: My [facility], Work/School Release (Inpt), Smoking Cessation Medications and DC Order Prescriptions: New prednisone 50 mg Tablet 50 mg PO DAILY 2 Days Qty: 2 RF: 0 cefdinir 300 mg capsule 300 mg PO BID 11 Days Qty: 22 RF: 0 acetaminophen-codeine [Tylenol-Codeine #3] 300-30 mg tablet 1 tab PO HS PRN (Reason: cough) Qty: 5 RF: 0 Continued benzonatate [Tessalon Perles] 100 mg capsule 100 mg PO BID Qty: 30 RF: 1 alprazolam 0.25 mg tablet 0.25 mg PO BID PRN (Reason: sleep) Qty: 30 RF: 2 escitalopram oxalate 5 mg tablet 10 mg PO DAILY Qty: 60 RF: 5 levalbuterol tartrate [Xopenex HFA] 45 mcg/actuation HFA aerosol inhaler 2 puff inhalation Q6H PRN (Reason: cough/wheeze/shortness of breath) Qty: 15 RF: 1 losartan 50 mg tablet 50 mg PO BID Qty: 60 RF: 5 meloxicam 7.5 mg tablet 7.5 mg PO DAILY Qty: 30 RF: 5 pantoprazole 40 mg tablet,delayed release (DR/EC) 40 mg PO DAILY Qty: 30 RF: 5 calcium carbonate [Calcium 500] 500 mg calcium (1,250 mg) Tablet 1,000 mg PO BID RF: 0 cholecalciferol (vitamin D3) [Vitamin D3] 5,000 unit Tablet 5,000 unit PO DAILY RF: 0 Discontinued prednisone 10 mg tablet See Rx Instructions PO DAILY Qty: 20 RF: 0 Discharge Orders: Discharge Order (Routine); Ordered 11/18/19 Ordered By: Nahed Trejo Admission Data Admit Date/Time: 11/16/19 05:13 Attending Provider: Bird Sandhu Admit Provider: Ike Jordan Primary Care Provider: Americo Gilbert Other Providers: Cory Martini ; Sanjay Ulrich Other Interventions: Discharge Summary Assessment (RN) Last Done: 11/18/19 13:31 DC Date/Time DO NOT enter until pt leaves facility: 11/18/19 13:54 Supervising Physician Co-Signing Physician Notes I personally examined the patient and verified all phillips points of history and exam, discussed case, and agree with decision making with Dr Trejo. Feeling better. Still coughing some, otherwise feeling up to going home. No other acute complaints. Discussed plan of care, she expresses good understanding. General she is awake and alert pleasant no distress. HEENT normocephalic atraumatic mucous membranes moist. Breathing unlabored no accessory muscle use good effort, she does have a bit of cough. Skin shows no rashes no pallor or icterus. Pyelonephritis/sepsispresent on admissionwith subsequent bacteremianow stable for home. Given the sensitivities (fortunately far better than her ESBL's that were noted in January) we can complete treatment with oral cefdinir (discussed risks and benefits of this approach versus a full course intravenous, and she expressed good understanding). Complete 14 total days of antibiotics. Follow- up MENG should she have a fever. Bronchitis/asthmatic type responsefinish out prednisone burst. Tylenol with codeine at bedtime to help with cough for the next few days. Follow-up PCP if she does not improve from this. Stable for home, otherwise as above. Resident Activity Tracking Resident Involvement: Resident Care Provided Care Provided: Adult Hospital Medicine
--- NOTE | 2019-11-18 17:23 | Billing Data ---
Date of Service November 18, 2019 Coding Level of Care Code D/C Day Management <30 mins
== END 2019-11-18 13:54 | disposition home or self-care (01) | DRG 871 ==
LOC: ED 01:58 → 3W 05:13 → SUATTDRO 05:13 → 3W 05:37